=== PATIENT | female | born 1935 | race Caucasian/White ===

== ENCOUNTER 2019-01-19 15:45 | Inpatient (IN) | payer MEDICARE ==
[~2019-01-19] VITALS: Ht 157.5 cm; Wt 46.5 kg
[2019-01-19 17:12] VITALS: BP 125/79; PULSE 104; TEMP 97.7
--- NOTE | 2019-01-19 18:30 | NUR ---
Patient arrived to room VIA EMS, [facility] with [facility] assist. States she is embarrassed of her appearance and enjoys to laugh and joke. States she is without pain and does not have any difficulty breathing at this time. Call light and personal itmes are within reach.
[2019-01-19] MEDS ORDERED: TYLENOL 325MG325 MG PO (18:41)
[2019-01-19 19:22] VITALS: BP 141/57; PULSE 105; TEMP 97.4
--- NOTE | 2019-01-19 19:25 | NUR ---
Report given to oncoming shift. Patient is sitting on couch in room eating supper and visiting with family.
--- NOTE | 2019-01-19 22:14 | NUR ---
Pt sitting on edge of bed with bed alarm activated. States she is waiting for her ride home. Explained to pt that she will be spending the night at the hospital per . States she is afraid she does not have everything she needs. Informed her that we will take good care of her while she is here. Clothes removed and warm blanket given. Reorientated to surroundings. Meds given. Unsure of what meds she takes at home. Assessment complete.
[2019-01-19 23:53] VITALS: BP 121/61; PULSE 95; TEMP 97.5
[2019-01-20] VITALS (382 sets, daily range): BP systolic 72–151; BP diastolic 51–99; PULSE 86–153; TEMP 97.4–97.9; O2SAT 86–100
--- NOTE | 2019-01-20 06:53 | NUR ---
End of shift report given to Danika. Pt up to BSC. Incontinent of BM.
[2019-01-20 08:13] LABS: BASO % 0.1 % (0.0-2.0); EOS % 0.1 % (0-4.0); GRAN # 16.4 (1.4-6.5); GRAN % 89.8 % (42.2-75.2); HEMOGLOBIN 10.7 g/dl (12.5-16.0); LYMPH # 0.5 (1.2-3.4); LYMPH % 2.9 % (20.0-51.0); MEAN CELL VOLUME 89 fl (80.0-100.0); MEAN CORPUSCULAR HEMOGLOBIN 29 pg (27.0-31.0); MEAN CORPUSCULAR HGB CONC 32 g/dl (33.0-37.0); MEAN PLATELET VOLUME 8.4 fl (7.4-10.4); MONO # 1.1 (0.1-0.6); MONO % 6.2 % (1.7-9.3); PLATELET COUNT 696 K/mm3 (130-400); RED BLOOD COUNT 3.73 M/mm3 (4.10-5.30); REDCELL DISTRIBUTION WIDTH-CV 12.3 % (11.5-14.5)
--- NOTE | 2019-01-20 08:17 | NUR ---
9430- Received call from DOLORES Escalante in ICU on tele. Pt's HR between 160-170. Pt up to commode and just was settled back in bed. Boris called back minutes later stating pt's HR is sustaining in the 150s and appears to be in Afib with RVR. EKG ordered and obtained, confirmed to be Afib with RVR. Dr. Kumar notified and ordered pt to be transfered to ICU. C2 Tactical Analysis Technician, Remedios notified and bed given. Daughter, Lorena, called and updated on status. Attempted to call report to DOLORES Quiros who will return this RNs call once available.
[2019-01-20 08:32] LABS: ALBUMIN 3.3 gm/dL (3.5-5.0); BILIRUBIN,TOTAL 0.4 mg/dL (0.0-1.0); CALCIUM 10.1 mg/dL (8.4-10.2); CREATININE, serum 0.75 (0.52-1.25); POTASSIUM 3.5 mmol/L (3.4-5.0); TOTAL PROTEIN 6.4 gm/dL (6.4-8.2)
--- NOTE | 2019-01-20 08:40 | NUR ---
Patient arrives to ICU room 2 via WC from medical floor. Prior report recieved from DOLORES Garnica. Patient transfers with unsteady gait from chair to ICU bed. Assessment and vitals as charted. Afib RVR noted on monitor. Patient significantly dyspneic with exertion. Dr. Lauren at bedside. Patient returned to 3L O2 per NC. Care assumed at this time.
--- NOTE | 2019-01-20 08:49 | NUR ---
Report given to DOLORES Quiros. Transfered to ICU room 2.
--- NOTE | 2019-01-20 08:52 | NUR ---
Orders entered CPOE from off unit by Dr. Kumar.
--- NOTE | 2019-01-20 08:55 | NUR ---
Dr. Kumar called regarding orders for amiodarone gtt with bolus secondary to patient's hypotension and Dr. Hermosillols insistence that no bolus be provided because of this. TORB to DC bolus and start amio gtt at 1mg/min per Dr. Kumar. Care ongoing.
--- NOTE | 2019-01-20 09:03 | NUR ---
Neosynephrine started at 10mcg/min per VORB by Dr. Lauren at bedside.
--- NOTE | 2019-01-20 09:05 | NUR ---
Bedside discussion with patient, this RN, Dr. Lauren, and daughter (DPOA) Radha by phone regarding patient acuity and POC. Patient is prior DNR but communicates at this time that she would like everything done to include intubation but not compressions and would like to treat illness agressively but does not want to "be a vegetable". Daughter and patient indicate willingness for intubation if necessary, placement of central line, and thoracentesis. Questions invited, asked, and answered. Care ongoing.
--- NOTE | 2019-01-20 09:32 | NUR ---
Dr. Arias rounds at this time and discusses POC with Dr. Lauren. Orders as entered CPOE.
--- NOTE | 2019-01-20 09:40 | NUR ---
Dr. Lyle at bedside and dayanaraes POC with Dr. Lauren at Dr. Arias at length. ECHO ordered per .
--- NOTE | 2019-01-20 10:15 | NUR ---
Bedside right femoral central line placment per Dr. Lauren. Prior consent signed by patient and time out performed. Procedure lasts from 9289-1167. This nurse remains at bedside to monitor patient. Procedure is tolerated without complication. Care ongoing.
--- NOTE | 2019-01-20 10:19 | NUR ---
Patient noted with conversion from Afib with RVR to sinus rhythm. Dr. Lauren present in patient room and aware of change. Care ongoing.
--- NOTE | 2019-01-20 11:10 | NUR ---
Bedside right thoracentesis completed by Dr. Lauren at this time. Prior consent signed by patient. Time out completed. Duration of procedure is from [id number]. This nurse remains at bedside to monitor patient. Approximately 1400ml pleural fluid removed by and sent for labs and pathology as ordered. Site dressed with sterile gauze and tape and without drainage noted.
--- NOTE | 2019-01-20 12:00 | NUR ---
Bedside ECHO completed by tech at this time.
--- NOTE | 2019-01-20 12:30 | NUR ---
Repeat post thora x-ray completed by [facility] at this time. Dr. Lauren present to review results.
[2019-01-20 13:11] LABS: TOTAL PROTEIN,PLEURAL FLUID 3.4 gm/dL
--- NOTE | 2019-01-20 13:13 | NUR ---
Attempt made to contact daughter Radha to provide updates to interventions and inprovement in patient status. No answer and no personal information on voicemail. Both provided numbers are called.
[2019-01-20 13:54] LABS: PLEURAL FLUID RBC 1000 /mm3 (0-0); PLEURAL FLUID WBC 440 /mm3
[2019-01-20 13:56] LABS: PLEURAL FLUID APPEARANCE CLEAR; PLEURAL FLUID COLOR YELLOW
--- NOTE | 2019-01-20 19:05 | NUR ---
Report received from DOLORES Quiros. Patient care received.
--- NOTE | 2019-01-20 19:54 | NUR ---
Assessment complete; Denies any shortness of breath or pain at this time. Lung sounds auscultated; coarse in left lobes. Right lobe coarse in lower lobes and diminished in all de la cruz. 02 currenlty 99% on 1.5L o2. Assisted with alejandra-care and repositioning. Coccyx assessed and mepalex in placed. Pulled back dressing to observe site. Approximately 4X4cm reddened intact skin with dime sized center with shallow abrasion. No other complaints at this time; will continue to monitor.
--- NOTE | 2019-01-20 23:18 | NUR ---
Assisted with repositioning; No complaints or concerns reported at this time.
[2019-01-21] VITALS (381 sets, daily range): BP systolic 113–144; BP diastolic 45–62; PULSE 71–90; TEMP 97.5–98.2; O2SAT 82–100
--- NOTE | 2019-01-21 04:05 | NUR ---
Assessment complete; right lung still diminished, however slight improvement in aeration auscultated. Denies any shortness of breath. Reports an occasional "hacking" cought. Has oral suction which she uses independently as needed. No other complaints at this time.
[2019-01-21 05:22] LABS: MEAN CELL VOLUME 88 fl (80.0-100.0); MEAN CORPUSCULAR HGB CONC 33 g/dl (33.0-37.0); MEAN PLATELET VOLUME 8.5 fl (7.4-10.4); RED BLOOD COUNT 3.22 M/mm3 (4.10-5.30); REDCELL DISTRIBUTION WIDTH-CV 12.4 % (11.5-14.5)
[2019-01-21 05:24] LABS: HEMATOCRIT 28.4 % (37.0-47.0); HEMOGLOBIN 9.3 g/dl (12.5-16.0); MEAN CORPUSCULAR HEMOGLOBIN 29 pg (27.0-31.0); PLATELET COUNT 551 K/mm3 (130-400)
[2019-01-21 05:32] LABS: CALCIUM 8.8 mg/dL (8.4-10.2); CREATININE, serum 0.69 (0.52-1.25)
[2019-01-21 06:02] LABS: BAND 2 % (0-10); LYMPHOCYTE 1 % (20.0-51.0); NEUTROPHILS 94 % (42.0-75.2); PLATELET ESTIMATE INCREASED (NORMAL)
--- NOTE | 2019-01-21 07:00 | NUR ---
Report recieved from DOLORES Garvey. Patient denies needs at this time. Milner with yellow clear UO noted. Right femoral line with dressing CDI and without complication noted. Amiodarone gtt infusing at ordered rate. Pump settings verified. 2L O2 in place per NC. Care resumed at this time.
--- NOTE | 2019-01-21 09:30 | NUR ---
Dr. Lyle rounds at this time POC discussed to include MD intention to transition patient from IV Amio to PO sotalol. Care ongoing.
--- NOTE | 2019-01-21 12:35 | NUR ---
Patient to CT for ordered exam.
--- NOTE | 2019-01-21 12:45 | NUR ---
Patient returns from CT and is replaced to monitors. Care ongoing.
--- NOTE | 2019-01-21 12:50 | NUR ---
Dr. Lyle contacted regarding orders for PO sotalol as prior discussed. These are entered at this time by MD as well as order to DC IV amiodarone. Care ongoing.
--- NOTE | 2019-01-21 13:30 | NUR ---
Dr. Arias rounds at this time. Orders as entered CPOE. Care ongoing.
--- NOTE | 2019-01-21 16:04 | NUR ---
Patient assisted to bedside recliner with shuffling gait. She is arranged with her dinner and denies further needs at this time.
--- NOTE | 2019-01-21 18:00 | NUR ---
Patient transferred to ICU room 3 secondary to monitor malfunction in prior room. All belongings and chart and sent with. Care ongoing.
--- NOTE | 2019-01-21 20:00 | NUR ---
Assessment complete; patient denies any pain or shortness of breath. 02 occasionally dropping to upper 80's on RA. Placed on 1L NC. Assisted with repositioning and alejandra-care. Fluids offered and accepted. Reddened area to coccyx approximately 4X4CM with 2 dize sized abrasions; repositioning q2hr. Will continue to monitor.
[2019-01-22] VITALS (348 sets, daily range): BP systolic 116–156; BP diastolic 50–76; PULSE 63–69; TEMP 97.5–98; O2SAT 88–100
--- NOTE | 2019-01-22 04:30 | NUR ---
Provided a bedbath. Patient very appreciative. No other needs at this time.
[2019-01-22 05:14] LABS: MEAN CELL VOLUME 89 fl (80.0-100.0); MEAN CORPUSCULAR HGB CONC 33 g/dl (33.0-37.0); MEAN PLATELET VOLUME 8.6 fl (7.4-10.4); PLATELET COUNT 566 K/mm3 (130-400); RED BLOOD COUNT 3.18 M/mm3 (4.10-5.30); REDCELL DISTRIBUTION WIDTH-CV 12.4 % (11.5-14.5)
[2019-01-22 05:20] LABS: HEMATOCRIT 28.3 % (37.0-47.0); HEMOGLOBIN 9.2 g/dl (12.5-16.0); MEAN CORPUSCULAR HEMOGLOBIN 29 pg (27.0-31.0)
[2019-01-22 05:25] LABS: CALCIUM 9.2 mg/dL (8.4-10.2); CREATININE, serum 0.65 (0.52-1.25); MAGNESIUM 1.8 mg/dL (1.6-2.3); PHOSPHOROUS 2.1 mg/dL (2.5-4.5); POTASSIUM 4.1 mmol/L (3.4-5.0)
[2019-01-22 05:56] LABS: BAND 1 % (0-10); LYMPHOCYTE 4 % (20.0-51.0); NEUTROPHILS 92 % (42.0-75.2); PLATELET ESTIMATE INCREASED (NORMAL)
--- NOTE | 2019-01-22 05:59 | NUR ---
Reported critcal WBC count to E-ICU; no further orders at this time.
--- NOTE | 2019-01-22 06:18 | NUR ---
Assisted to use the bedpan; had small soft to semi-loose brown BM. Sherita-care provided and assisted to reposition. Reported some shortness of breath occuring when leaning far onto right side. Right side noted to be where pleural effusion is located. No signifant drop in 02 noted with repositioning. Denies any other complaints. Will continue to monitor.
--- NOTE | 2019-01-22 07:15 | NUR ---
Bedside report given to DOLORES Ivan and DOLORES Torres. Patient care transfered.
--- NOTE | 2019-01-22 09:30 | NUR ---
SW met with the patient to discuss discharge plan. The patient lives in [place] with her daughter, Radha. She reports independence with ADLs and does not have any DME. The patient's PCP is Dr. Donavon Gan in [place] and she receives her medications at [facility]. She reports occasional difficulties picking up her medications, due to her daughter not having a vehicle right now. The patient's Living Will is in her chart. The patient reports that she does has a DPOA-HC completed and that it is her daughter, Radha. The patient's daughter requested that SW speak to her daughter. TARIK then contacted the patient's daughter, via phone. The patient's daughter reports that their friends have been helping them out and providing them with transportation. The patient's daughter reports that she is the patient's DPOA-HC and that she does have the forms. She states that she will bring a copy up to the hospital. The patient plans to return home with her daughter upon discharge. The patient's daughter reports that they should be able to get a ride home from the hospital from a friend. PT has been ordered and the patient is currently requiring oxygen. SW to continue to follow to ensure a safe discharge.
--- NOTE | 2019-01-22 16:02 | NUR ---
SW met with the patient to discuss physical therapies recommendation of post-acute rehab. The patient reports that she is a lot weaker and would be agreeable to post-acute rehab. SW provided the patient with Medicare[facility]'s list of nursing homes around [place], [place] and presented and explained the patient choice form. The patient preferred 1) [facility] 2) [facility] in [place]. Patient choice form signed by the patient and she was provided a copy. TARIK also contacted and updated the patient's daughter of recommendation. The patient's daughter was supportive of the plan. TARIK contacted and faxed a referral to both facilities. SW awaiting their screenings.
--- NOTE | 2019-01-22 22:00 | NUR ---
Assisted with repositioning; denies any needs at this time. Will continue to monitor.
[2019-01-23] VITALS (429 sets, daily range): BP systolic 114–152; BP diastolic 50–71; PULSE 62–72; TEMP 97.5–98.2; O2SAT 76–100
--- NOTE | 2019-01-23 03:15 | NUR ---
Provided bed bath; Patient appreciative. Repositioned and situated in bed per her comfort. No concerns or complaints at this time.
--- NOTE | 2019-01-23 05:10 | NUR ---
Patient noted to have positional right sided discomfort when laying down and turning on the right side. States it is a aching pain associated with some shortness of air. Pain disappears with discontinuation of movement. 02 remains stable at these times.
[2019-01-23 05:12] LABS: BASO # 0.1 (0.0-0.2); BASO % 0.3 % (0.0-2.0); EOS # 0.3 (0.0-0.7); EOS % 1.2 % (0-4.0); GRAN % 88.1 % (42.2-75.2); LYMPH # 0.7 (1.2-3.4); LYMPH % 3.1 % (20.0-51.0); MEAN CELL VOLUME 91 fl (80.0-100.0); MEAN CORPUSCULAR HGB CONC 32 g/dl (33.0-37.0); MEAN PLATELET VOLUME 8.1 fl (7.4-10.4); MONO # 1.4 (0.1-0.6); MONO % 6.4 % (1.7-9.3); PLATELET COUNT 526 K/mm3 (130-400); RED BLOOD COUNT 3.21 M/mm3 (4.10-5.30); REDCELL DISTRIBUTION WIDTH-CV 12.5 % (11.5-14.5)
[2019-01-23 05:19] LABS: CALCIUM 8.7 mg/dL (8.4-10.2); CREATININE, serum 0.6 (0.52-1.25); POTASSIUM 3.7 mmol/L (3.4-5.0)
[2019-01-23 05:28] LABS: HEMATOCRIT 29.2 % (37.0-47.0); HEMOGLOBIN 9.3 g/dl (12.5-16.0); MEAN CORPUSCULAR HEMOGLOBIN 29 pg (27.0-31.0)
--- NOTE | 2019-01-23 08:00 | NUR ---
PATIENT ASSESSED, REPOSITIONED FREQUENTLY SHE WAS COMPLAINING OF DISCOMFORT ON HER RIGHT SIDE WITH MOVEMENT AND CERTAIN POSITIONING. DENIES PAIN WHEN RESTING. WILL CONTINUE TO MONITOR.
--- NOTE | 2019-01-23 13:04 | NUR ---
TARIK attempted to contact Natalya at [facility] and Oralia at [facility] for an update on referrals. SW left voicemails. SW faxed both facilities updates. SW to continue to follow.
--- NOTE | 2019-01-23 14:33 | NUR ---
Natalya, at [facility], reports that they will continue to follow the patient, but have not yet accepted. Natalya reports that they will need to continue to receive updates and will need to know whether the patient will eventually receive chemo or IV antibiotics. Oralia, at [facility], reports that they would like to accept the patient; but that they also will need to continue to receive updates on the patient's treatment plan. SW to continue to follow.
--- NOTE | 2019-01-23 15:25 | NUR ---
REPORT GIVEN TO DOLORES FLORES. PATIENT SETTLED INTO ROOM AND ORIENTED.
--- NOTE | 2019-01-23 17:59 | NUR ---
Pt up to room 311, settled into room, wanted to rest. Pt now awake. Denies chest pain, dizzines, SOB, n/v. On 1L NC. SERAFIN PICC with zosyn @ 25ml/hr running through purple port. Red port flushes and has good blood return. Pt on tele. Rt groin site with gauze and tegaderm, CDI. Pt has reddened coccyx w/ two small open sores, this nruse applied barrier cream. Pt C/O right sided lung pain. Rating pain at 3/10 if she isn't "doing too much". Lungs clear but diminished throughout. Milner in place draining clear yellow urine. Assisted pt on to bedpan and brushing teeth. No other concerns at this time.
--- NOTE | 2019-01-23 20:10 | NUR ---
Shift assessment complete. Pt resting in bed, awake, a&o, cooperative c cares. Pt denies pain or other c/o at this time. PICC noted to R upper arm, patent c good blood return. O2 per NC. Tele in place. PT denies needs. Call light in reach, bed alarm on. Will continue to monitor.
[2019-01-24 03:47] VITALS: BP 147/73; PULSE 69; TEMP 97.7
[2019-01-24 06:35] LABS: BASO # 0.1 (0.0-0.2); BASO % 0.3 % (0.0-2.0); EOS # 0.4 (0.0-0.7); EOS % 1.6 % (0-4.0); GRAN # 18.5 (1.4-6.5); GRAN % 87.2 % (42.2-75.2); LYMPH # 0.7 (1.2-3.4); LYMPH % 3.2 % (20.0-51.0); MEAN CELL VOLUME 91 fl (80.0-100.0); MEAN CORPUSCULAR HGB CONC 31 g/dl (33.0-37.0); MEAN PLATELET VOLUME 8.8 fl (7.4-10.4); MONO # 1.3 (0.1-0.6); MONO % 6.3 % (1.7-9.3); PLATELET COUNT 583 K/mm3 (130-400); RED BLOOD COUNT 3.35 M/mm3 (4.10-5.30); REDCELL DISTRIBUTION WIDTH-CV 12.4 % (11.5-14.5)
[2019-01-24 06:44] LABS: ALBUMIN 2.5 gm/dL (3.5-5.0); BILIRUBIN,TOTAL 0.2 mg/dL (0.0-1.0); CALCIUM 8.8 mg/dL (8.4-10.2); CREATININE, serum 0.53 (0.52-1.25); POTASSIUM 3.9 mmol/L (3.4-5.0)
[2019-01-24 06:49] LABS: HEMATOCRIT 30.6 % (37.0-47.0); HEMOGLOBIN 9.6 g/dl (12.5-16.0); MEAN CORPUSCULAR HEMOGLOBIN 29 pg (27.0-31.0)
--- NOTE | 2019-01-24 08:20 | NUR ---
PICC intact right upper arm with sterile dressing change done with insertion site cleansed with chloraprep x 1, chlorhexidine impregnated disk applied, skin prep, stat lock, and tegaderm applied. no signs or symptoms of IV complications noted. no concerns voiced. re-wrapped with jose g to protect catheter.
[2019-01-24 09:06] VITALS: BP 124/48; PULSE 73; TEMP 98.3
--- NOTE | 2019-01-24 09:53 | NUR ---
Pt assessment complete and charted. Pt up to recliner with therapy. pt states she is "doing better today". denies pain, chest pain, dizziness, N/V. Milner in place draining pale yellow urine. SERAFIN PICC in place, both red and purple port flushing well and good blood return with no complications. Coccyx is red w/ two small open sores. general bruising noted on arms. No other complaints at this time.
--- NOTE | 2019-01-24 11:16 | NUR ---
First visit from the professional architect. No needs right now.
[2019-01-24 11:42] VITALS: BP 157/58; PULSE 68; TEMP 97.9
--- NOTE | 2019-01-24 15:53 | NUR ---
[facility] will continue to follow.
[2019-01-24 16:14] VITALS: BP 159/54; PULSE 70; TEMP 98.3
--- NOTE | 2019-01-24 18:32 | NUR ---
Pt has had uneventful day. Received antibiotics per AUG. C/O pain with therapy, rating it 10/10. Per pt she "doesn't like to bother anyone". Informed pt she needs to tell us earlier if she is in pain or needs anything. Pt rating pain 3/10 at this time. Received tylenol earlier PRN per AUG. No other complaints at this time.
[2019-01-24 20:23] VITALS: BP 124/51; PULSE 66; TEMP 98.3
--- NOTE | 2019-01-24 20:30 | NUR ---
Initial shift assessment done- denies pain, denies SOB, o2 at 1L/nc, Lung sounds very decreased in right lower lobes- Dr. Mclaughlin in- will do pleurax drain at 0800 in the morning- pt aware- will be NPO after MN- will get consent signed tonight. Tele on, VSS, no requests, ready to get some sleep
[2019-01-24 23:54] VITALS: BP 116/50; PULSE 99; TEMP 97.5
[2019-01-25] VITALS (13 sets, daily range): BP systolic 111–153; BP diastolic 41–53; PULSE 61–66; TEMP 97.5–98.7
[2019-01-25 06:05] LABS: MEAN CELL VOLUME 91 fl (80.0-100.0); MEAN CORPUSCULAR HGB CONC 32 g/dl (33.0-37.0); MEAN PLATELET VOLUME 8.6 fl (7.4-10.4); PLATELET COUNT 509 K/mm3 (130-400); RED BLOOD COUNT 3.17 M/mm3 (4.10-5.30); REDCELL DISTRIBUTION WIDTH-CV 12.6 % (11.5-14.5)
[2019-01-25 06:06] LABS: HEMATOCRIT 28.9 % (37.0-47.0); HEMOGLOBIN 9.1 g/dl (12.5-16.0); MEAN CORPUSCULAR HEMOGLOBIN 29 pg (27.0-31.0)
[2019-01-25 06:17] LABS: ALBUMIN 2.3 gm/dL (3.5-5.0); BILIRUBIN,TOTAL 0.1 mg/dL (0.0-1.0); CALCIUM 8.5 mg/dL (8.4-10.2); CREATININE, serum 0.59 (0.52-1.25); POTASSIUM 3.6 mmol/L (3.4-5.0); TOTAL PROTEIN 4.9 gm/dL (6.4-8.2)
--- NOTE | 2019-01-25 06:17 | NUR ---
Quiet night- VSS, Milner with 650cc clear yellow urine, did have soft bowel movement per bedpan-, has been NPO since MN, signed consent for OR
[2019-01-25 06:48] LABS: BAND 2 % (0-10); EOSINOPHIL 2 % (0-4); LYMPHOCYTE 3 % (20.0-51.0); METAMYELOCYTE 2 % (0-0); NEUTROPHILS 85 % (42.0-75.2); PLATELET ESTIMATE INCREASED (NORMAL)
--- NOTE | 2019-01-25 07:29 | NUR ---
Pt assessment complete and charted. Pt resting in bed before going down for pleurix drain placement. Rt lung sounds absent/very diminshed. SERAFIN PICC in place w/ zosyn running in one port w/ no complications. Both ports flush well with good blood return. Pt coccyx reddened w/ two very small open sores present, barrier cream being applied. Milner in place draining clear yellow urine. Pt on 1L NC. Denies SOB, dizziness, N/V. C/O right side "discomfort" rating it 1-2/10. No other needs at this time. Consent signed for procedure.
--- NOTE | 2019-01-25 07:42 | NUR ---
Pt down for procedure at this time escorted via bed w/ Wilberto from surgery.
--- NOTE | 2019-01-25 08:20 | NUR ---
PT HAVING PROCEDURE
--- NOTE | 2019-01-25 09:53 | NUR ---
Pt back from pluerix procedure. Rt side dressing CDI, drain sponge and tegaderm in place. Catheter capped. Pt VSS, VS monitoring in progress. Pt resting in bed.
--- NOTE | 2019-01-25 10:41 | NUR ---
Pt resting in bed, still sleeping from procedure. VSS.
--- NOTE | 2019-01-25 13:42 | NUR ---
Pt up and tolerating liquids. Morning medications administered that were not given due to pt going down for procedure early this morning and sleeping afterwards. Pt just arrived back on floor from CT. Pt is A&O. C/O "tenderness" on right front side. Pt denies pain medication at this time.
--- NOTE | 2019-01-25 14:52 | NUR ---
SW faxed pt update to [facility] and [facility]. TARIK will continue to follow.
--- NOTE | 2019-01-25 15:20 | NUR ---
Pt repositioned, pillow placed under right side, barrier cream applied to coccyx that is reddened w/ two small open sores. Open sores still same size. Right front side, under breast, dressing is CDI, catheter still capped. Pt denies wanting any pain medication. No other needs or complaints at this time.
--- NOTE | 2019-01-25 17:03 | NUR ---
Pt daughter phoned this nurse, upset that there are "things going on that she didn't know about". Pts daughter had talked to pt and was informed about procedures performed and pending discharge. Per daughter she is not DPOA, this nurse talked to SW who stated that daughter said "she was DPOA but hasn't brought in paperwork". Pt is A&O and able to make own decisions. POC has been discussed between all providers and pt, pt has agreed to all procedures. TARIK called daughter to discuss POC. CHIRAG Blanchard also informed of situation and given daughters number to call and discuss POC. Pt has been doing ok this afternoon since procedures. VSS. Pt just states she is "sleepy". No other concerns at this time.
[2019-01-26] VITALS (9 sets, daily range): BP systolic 115–146; BP diastolic 40–63; PULSE 59–71; TEMP 97.3–98.5
[2019-01-26 06:15] LABS: HEMATOCRIT 28.2 % (37.0-47.0); HEMOGLOBIN 8.7 g/dl (12.5-16.0); MEAN CELL VOLUME 93 fl (80.0-100.0); MEAN CORPUSCULAR HEMOGLOBIN 29 pg (27.0-31.0); MEAN CORPUSCULAR HGB CONC 31 g/dl (33.0-37.0); MEAN PLATELET VOLUME 8.8 fl (7.4-10.4); PLATELET COUNT 475 K/mm3 (130-400); RED BLOOD COUNT 3.05 M/mm3 (4.10-5.30); REDCELL DISTRIBUTION WIDTH-CV 12.8 % (11.5-14.5)
[2019-01-26 06:31] LABS: ALBUMIN 2.2 gm/dL (3.5-5.0); BILIRUBIN,TOTAL 0.2 mg/dL (0.0-1.0); CALCIUM 8.3 mg/dL (8.4-10.2); CREATININE, serum 0.59 (0.52-1.25); POTASSIUM 3.8 mmol/L (3.4-5.0); TOTAL PROTEIN 4.6 gm/dL (6.4-8.2)
[2019-01-26 06:53] LABS: EOSINOPHIL 3 % (0-4); LYMPHOCYTE 3 % (20.0-51.0); NEUTROPHILS 92 % (42.0-75.2); PLATELET ESTIMATE INCREASED (NORMAL)
--- NOTE | 2019-01-26 10:23 | NUR ---
Natalya, at [facility], reports that they are unable to accept the patient.
--- NOTE | 2019-01-26 10:30 | NUR ---
Assessment charted. Pt in recliner at side of bed. On phone with family, anticipating discharge today to [facility] or [facility]. Fish in room and on floor discussing need to to lung biopsy. Pt agreeable to lung biopsy and new plan for biopsy and staying here until results are in. BLE and Elbows have +1 edema. Bruising to arms. PICC to SERAFIN with antibiotics infusing. Milner removed per orders, pt tolerated well. Denies needs, will continue to monitor.
--- NOTE | 2019-01-26 11:22 | NUR ---
Oralia, at [facility], reports that they can accept the patient for a skilled stay. SW had informed the patient and patient's daughter, Radha, via phone. The patient and her daughter are in agreeance to transfer there upon discharge. The patient is to have a biopsy today, 01/26. SW to continue to follow.
--- NOTE | 2019-01-26 11:56 | NUR ---
Report received from DOLORES García. pT in bed resting with eyes closed, denies needs, will continue to monitor.
--- NOTE | 2019-01-26 13:45 | NUR ---
PT BROUGHT INTO CT ROOM AND PLACED ON THE CT TABLE. PT WAS POSITIONED ON HER STOMACH, SOME ANXIETY WITH THIS POSITION. TIME OUT COMPLETED. IMAGES TAKEN AND SENT
--- NOTE | 2019-01-26 13:50 | NUR ---
PT RESTING WITH RESP EVEN AND NONLABORED AT 20.
--- NOTE | 2019-01-26 14:20 | NUR ---
PT TOLERATED PROCEDURE WELL. PT WAS SLEEPY AFTER THE MEDS. PT WAS TRANSFERED TO CART VIA STAFF IN LOG ROLL. PICC PATENT TO [facility]. PRESTON IN PLACE. REPORT WAS CALLED TO ANJELICA BERNAL.
--- NOTE | 2019-01-26 14:43 | NUR ---
PT WAS GIVEN 0.5MG VERSED AND 25 MCG FENTANYL FOR BREATHING.
--- NOTE | 2019-01-26 19:17 | NUR ---
Pt resting in bed after returning from lung biopsy at 1545. Resting quietly and sleepy, allowed to s leep for some time. Sacrem redenned and placed mepilex dressing pillow under backside for comfort. PT feeling well, waiting on supper. Denies needs, bedside shift report given to DOLORES García who will resume care.
[2019-01-27 03:01] VITALS: BP 144/64; PULSE 64; TEMP 97.6
--- NOTE | 2019-01-27 07:15 | NUR ---
Report received from DOLORES García. pT in bed sleeping, will continue to monitor.
[2019-01-27 07:32] VITALS: BP 149/48; PULSE 63; TEMP 98
[2019-01-27 07:37] LABS: MEAN CELL VOLUME 91 fl (80.0-100.0); MEAN CORPUSCULAR HGB CONC 32 g/dl (33.0-37.0); PLATELET COUNT 462 K/mm3 (130-400); RED BLOOD COUNT 2.91 M/mm3 (4.10-5.30); REDCELL DISTRIBUTION WIDTH-CV 12.9 % (11.5-14.5)
[2019-01-27 07:44] LABS: HEMATOCRIT 26.6 % (37.0-47.0); HEMOGLOBIN 8.5 g/dl (12.5-16.0); MEAN CORPUSCULAR HEMOGLOBIN 29 pg (27.0-31.0)
[2019-01-27 07:46] LABS: ALANINE AMINOTRANSFERASE 11 U/L (9-52); ALBUMIN 2.3 gm/dL (3.5-5.0); ALKALINE PHOSPHATASE 51 U/L (50-136); ANION GAP 4 mmol/L (7-16); AST,SGOT 18 U/L (15-37); BILIRUBIN,TOTAL < 0.1 mg/dL (0.0-1.0); BLOOD UREA NITROGEN 12 mg/dL (7-17); CALCIUM 8.5 mg/dL (8.4-10.2); CARBON DIOXIDE 34 mmol/L (22-30); CHLORIDE 97 mmol/L (98-107); GLUCOSE 97 mg/dL (74-106); POTASSIUM 3.5 mmol/L (3.4-5.0); SODIUM 135 mmol/L (137-145); TOTAL PROTEIN 4.9 gm/dL (6.4-8.2)
[2019-01-27 08:23] LABS: EOSINOPHIL 3 % (0-4); LYMPHOCYTE 5 % (20.0-51.0); NEUTROPHILS 87 % (42.0-75.2); PLATELET ESTIMATE INCREASED (NORMAL)
--- NOTE | 2019-01-27 10:30 | NUR ---
Assessment charted. Pt in bed resting, repositioned for comfort, pillow under left side for comfort. Bandaid on back from lung biopsy site is CDI. Right pleurex drain dressing is CDI. Lungs are very dimished on R side. Pt states she is "tired today from yesterday", wants to finish breakfast and rest. PICC to SERAFIN with antibiotics infusing. Denies needs, will continue to monitor.
[2019-01-27 12:03] VITALS: BP 141/45; PULSE 54; TEMP 98.2
[2019-01-27 17:00] VITALS: BP 153/60; PULSE 69; TEMP 98.8
--- NOTE | 2019-01-27 18:19 | NUR ---
Pt has been very lethargic today, just wnating to rest. This afternoon she was all of the sudden tearful, complaining of discomfort and inability to void. Bladder scan revealed 700 mls, orders received to straight cath. Straight cath provided, 350 mls output of urine, pt tolerated well, pericare provided. Per orders pt will be bladder scanned q shift and if greater than 500 mls found will need catheter. Pt grateful for catheterization and now wants to rest. Will give bedside shift report to nightshift nurse who will resume care.
[2019-01-27 19:13] VITALS: BP 155/62; PULSE 71; TEMP 98.4
--- NOTE | 2019-01-27 19:44 | NUR ---
patient laying in bed with eyes open. presents with relaxed body posture and even non labored respirations. reports generalized body aches. States "This is normal". denies needing intervvention. SPO2 89% on RA. O2 2L/NC applied. SPO2 98% within 2 minuets. patient denies c/o SOA. Right chest peurex drain in place, clamped. dressing in place. Lung sounds right side very diminished throughout. left lung sounds clear to ascultation. RT in room completeing nebulizer treatment at this time.
[2019-01-27 23:08] VITALS: BP 143/59; PULSE 60; TEMP 97.3
[2019-01-28 03:05] VITALS: BP 163/66; PULSE 63; TEMP 97
--- NOTE | 2019-01-28 07:00 | NUR ---
Report received from DOLORES García. Pt in bed resting with eyes closed, denies needs, will continue to monitor.
[2019-01-28 07:53] LABS: MEAN CELL VOLUME 91 fl (80.0-100.0); MEAN CORPUSCULAR HGB CONC 31 g/dl (33.0-37.0); MEAN PLATELET VOLUME 8.9 fl (7.4-10.4); PLATELET COUNT 484 K/mm3 (130-400); RED BLOOD COUNT 3.18 M/mm3 (4.10-5.30); REDCELL DISTRIBUTION WIDTH-CV 12.9 % (11.5-14.5)
[2019-01-28 08:02] LABS: HEMOGLOBIN 9.1 g/dl (12.5-16.0); MEAN CORPUSCULAR HEMOGLOBIN 29 pg (27.0-31.0)
[2019-01-28 08:04] LABS: ALBUMIN 2.6 gm/dL (3.5-5.0); BILIRUBIN,TOTAL 0.2 mg/dL (0.0-1.0); CALCIUM 8.6 mg/dL (8.4-10.2); CREATININE, serum 0.7 (0.52-1.25); POTASSIUM 3.4 mmol/L (3.4-5.0); TOTAL PROTEIN 5.5 gm/dL (6.4-8.2)
[2019-01-28 08:29] VITALS: BP 155/58; PULSE 64; TEMP 98
--- NOTE | 2019-01-28 10:00 | NUR ---
Assessment charted. Pt more alert today. uP with PT and ambulated down hallway well. Pillow under sacrem for comfort with stage 2 pressure ulcer. L lung is clear and R lung is severely diminished. Ate some breafkast, wants to eat a late lunch. PICC to SERAFIN. Denies needs, will continue to monitor.
[2019-01-28 10:14] LABS: BAND 5 % (0-10); NEUTROPHILS 90 % (42.0-75.2); PLATELET ESTIMATE INCREASED (NORMAL)
[2019-01-28 10:16] LABS: HYPOCHROMIA 2+
[2019-01-28 12:00] VITALS: BP 154/60; PULSE 64; TEMP 97.9
[2019-01-28 16:11] VITALS: BP 146/48; PULSE 67; TEMP 98.4
--- NOTE | 2019-01-28 17:29 | NUR ---
Pt has rested off and on today. Doing well, ate 1 yogurt for breakfast and stated she felt too full to eat lunch and wanted supper at 6pm. Encouraged intake but has very little drive to eat or drink much. Resting on top of pillow for comfort d/t soreness on backside. Denies needs, will give bedside shift report to nightshift nurse who cammy resume care.
[2019-01-28 19:55] VITALS: BP 147/56; PULSE 70; TEMP 97.9
[2019-01-28 23:40] VITALS: BP 147/53; PULSE 62; TEMP 97.5
[2019-01-29 03:53] VITALS: BP 149/51; PULSE 65; TEMP 97.5
[2019-01-29 07:10] LABS: BASO # 0.1 (0.0-0.2); BASO % 0.6 % (0.0-2.0); EOS # 0.2 (0.0-0.7); EOS % 1.2 % (0-4.0); GRAN # 12.8 (1.4-6.5); GRAN % 84.6 % (42.2-75.2); LYMPH # 0.8 (1.2-3.4); MEAN CELL VOLUME 92 fl (80.0-100.0); MEAN CORPUSCULAR HGB CONC 32 g/dl (33.0-37.0); MEAN PLATELET VOLUME 9.2 fl (7.4-10.4); MONO # 1.1 (0.1-0.6); MONO % 7.3 % (1.7-9.3); PLATELET COUNT 449 K/mm3 (130-400); RED BLOOD COUNT 2.84 M/mm3 (4.10-5.30)
[2019-01-29 07:11] LABS: HEMATOCRIT 26.1 % (37.0-47.0); HEMOGLOBIN 8.3 g/dl (12.5-16.0); MEAN CORPUSCULAR HEMOGLOBIN 29 pg (27.0-31.0)
[2019-01-29 07:16] LABS: CALCIUM 8.8 mg/dL (8.4-10.2); CREATININE, serum 0.68 (0.52-1.25); POTASSIUM 3.8 mmol/L (3.4-5.0)
[2019-01-29 08:07] VITALS: BP 154/55; PULSE 67; TEMP 98.3
--- NOTE | 2019-01-29 11:08 | NUR ---
Pt assessment complete and charted. Pt sitting in bed eating breakfast. Denies pain, c/o some pressure/tenderness where the pleurix catheter is located. Denies pain medication. Pt on 1L NC. Milner in place w/ clear yellow urine draining. SERAFIN PICC flushes w/ good blood return. pt is noted to have bilateral 1+ edema on feet, which per pt "is new", will discuss w/ hospitalist. Pt denies SOB, dizziness, N/V, chest pain. No other needs at this time.
[2019-01-29 12:34] VITALS: BP 135/50; PULSE 62; TEMP 98.2
--- NOTE | 2019-01-29 14:40 | NUR ---
Pt jarvis beckham'adan. 100 ml emptied from bag. Pt instructed to call to be assisted to bathroom. Will do a bladder scan post void.
[2019-01-29 16:26] VITALS: BP 165/55; PULSE 65; TEMP 97.9
--- NOTE | 2019-01-29 16:56 | NUR ---
The patient's prelim path results were positive for squamous cell carcinoma. Dr. Whitten is recommending a radiation oncology consult. TARIK attempted to contact and update Oralia at [facility]. TARIK left a voicemail and faxed over updates. SW to continue to follow.
--- NOTE | 2019-01-29 19:23 | NUR ---
Pt refused dinner tonight, requesting only an Ensure. Pt repositioned, mepalex on coccyx changed, barrier cream applied, pericare provided. Pt requested tylenol this afternoon. Pt has not voided since removal of conley. Informed equip maint eng nurse of patient status.
[2019-01-29 19:44] VITALS: BP 134/46; PULSE 63; TEMP 97.9
[2019-01-29 23:44] VITALS: BP 154/60; PULSE 64; TEMP 97.3
[2019-01-30 04:17] VITALS: BP 154/50; PULSE 63; TEMP 97.6
[2019-01-30 06:16] LABS: CALCIUM 8.8 mg/dL (8.4-10.2); CREATININE, serum 0.65 (0.52-1.25)
[2019-01-30 06:33] LABS: BASO # 0.1 (0.0-0.2); BASO % 0.5 % (0.0-2.0); EOS # 0.2 (0.0-0.7); EOS % 1.6 % (0-4.0); GRAN # 12.2 (1.4-6.5); GRAN % 84.9 % (42.2-75.2); LYMPH # 0.7 (1.2-3.4); LYMPH % 5.1 % (20.0-51.0); MEAN CELL VOLUME 92 fl (80.0-100.0); MEAN CORPUSCULAR HGB CONC 31 g/dl (33.0-37.0); MEAN PLATELET VOLUME 9.2 fl (7.4-10.4); MONO # 0.9 (0.1-0.6); MONO % 6.6 % (1.7-9.3); PLATELET COUNT 435 K/mm3 (130-400); RED BLOOD COUNT 2.92 M/mm3 (4.10-5.30); REDCELL DISTRIBUTION WIDTH-CV 13.2 % (11.5-14.5)
[2019-01-30 06:48] LABS: HEMATOCRIT 26.8 % (37.0-47.0); HEMOGLOBIN 8.4 g/dl (12.5-16.0); MEAN CORPUSCULAR HEMOGLOBIN 29 pg (27.0-31.0)
--- NOTE | 2019-01-30 07:41 | NUR ---
PATIENT SLWPT THROUGH THE NIGHT WITHOUT COMPLAINTS. AT 0515 ENCOURAGED PATIENT TO GET UP TO VOID SHE HAS NOT URINATED ALL NIGHT. PATIENT STATES "I DO FEEL LIKE I NEED TO GO BUT IT DOES NOT HURT LIKE LAST TIME". ASSISTED TO BEDSIDE COMMADE. DID NOT VOID. POST RESIDUAL BLADDER SCAN COMPLETED WITH 725ML SCANNED. ROACH CATHETER PLACED PER ORDER. PATIENT AGREES WITH PLAN OF CARE AT THIS TIME
[2019-01-30 08:21] VITALS: PULSE 67; TEMP 98.2
[2019-01-30 08:24] VITALS: BP 112/71; PULSE 67; TEMP 98.2
--- NOTE | 2019-01-30 08:30 | NUR ---
Assessment complete. Pt sitting up in bed eating breakfast, A&O x 3. Breath sounds diminished in right lung. Pt reports generalized pain 7 out of 10 on pain scale, denies medications at this time. PICC line to right upper arm without s/s of complications. O2 at 1 L/min via NC. Milner to DD with clear, yellow urine. Reviewed plan to leave catheter in place until pt is able to see a urologist. No further needs reported. Call light in reach.
--- NOTE | 2019-01-30 09:00 | NUR ---
PICC intact right upper arm. With sterile technique right upper arm PICC dressing change done with insertion site cleansed with ChloraPrep 1, chlorhexidine impregnated disc applied, skin prep, StatLock, and Tegaderm applied. When changing the PICC dressing the Biopatch was coiled around catheter. In attempting to remove Biopatch, the catheter was pulled out. No signs or symptoms of IV complications noted. No concerns voiced. Arm wrapped with an Alfonso to protect catheter. We'll continue to monitor.
[2019-01-30 12:45] VITALS: BP 167/67; PULSE 66; TEMP 97.8
--- NOTE | 2019-01-30 15:58 | NUR ---
Oralia, at [facility], reports that they will continue to follow the patient. Oralia reports that she will need to know what kind and code of radiation the patient will be on and when and how often she will need it. The clinical teams is awaiting Dr. Miguel's radiation plan. SW to continue to follow.
--- NOTE | 2019-01-30 17:00 | NUR ---
Pt resting in bed, denies needs at this time, requests just to get some rest this afternoon. Call light in reach.
[2019-01-30 17:09] VITALS: BP 149/68; PULSE 67; TEMP 98.3
[2019-01-30 19:34] VITALS: BP 169/67; PULSE 66; TEMP 98.1
--- NOTE | 2019-01-30 22:53 | NUR ---
Report received from DOLORES Bautista. Patient resting in bed. Assessment completed. Vitals within normal limits. Patient denies having any pain. IV patent, flushed. Denies having any further needs at this time. Call light within reach.
[2019-01-31 00:13] VITALS: BP 170/71; PULSE 64; TEMP 97.6
--- NOTE | 2019-01-31 04:50 | NUR ---
Patient up to restroom. Reassessed coccyx area and now has several small open areas.
[2019-01-31 05:30] VITALS: BP 170/55; PULSE 61; TEMP 97.7
--- NOTE | 2019-01-31 06:09 | NUR ---
Patient had uneventful night. One episode of incontinence. Chux changed. Patient given toothbrush, toothpaste, and wipes for face. Resting in bed. Call light within reach.
[2019-01-31 06:13] LABS: BASO # 0.1 (0.0-0.2); BASO % 0.7 % (0.0-2.0); EOS # 0.3 (0.0-0.7); EOS % 1.4 % (0-4.0); GRAN # 15.8 (1.4-6.5); GRAN % 87.3 % (42.2-75.2); LYMPH # 0.8 (1.2-3.4); LYMPH % 4.2 % (20.0-51.0); MEAN CELL VOLUME 92 fl (80.0-100.0); MEAN CORPUSCULAR HGB CONC 31 g/dl (33.0-37.0); MEAN PLATELET VOLUME 9.3 fl (7.4-10.4); MONO % 5.3 % (1.7-9.3); PLATELET COUNT 465 K/mm3 (130-400); RED BLOOD COUNT 3.21 M/mm3 (4.10-5.30); REDCELL DISTRIBUTION WIDTH-CV 13.1 % (11.5-14.5)
[2019-01-31 06:17] LABS: HEMATOCRIT 29.4 % (37.0-47.0); HEMOGLOBIN 9.2 g/dl (12.5-16.0); MEAN CORPUSCULAR HEMOGLOBIN 29 pg (27.0-31.0)
[2019-01-31 06:27] LABS: CALCIUM 9.1 mg/dL (8.4-10.2); CREATININE, serum 0.64 (0.52-1.25); POTASSIUM 3.9 mmol/L (3.4-5.0)
--- NOTE | 2019-01-31 07:01 | NUR ---
Report given to DOLORES Bautista.
[2019-01-31 07:14] VITALS: BP 166/57; PULSE 60; TEMP 98
--- NOTE | 2019-01-31 08:30 | NUR ---
Assessment complete. Pt sitting up in bed, A&O x 3. Breath sounds diminished in right lung, clear in left. O2 at 1 L/min via NC. PICC to right upper arm without s/s of complications. Pt denies pain at this time. POC for radiation treatment reviewed with pt. No further needs reported. Call light in reach.
--- NOTE | 2019-01-31 09:15 | NUR ---
Pt to Cancer center for radiation treatment via [facility].
--- NOTE | 2019-01-31 14:29 | NUR ---
Dr. Miguel is recommending ten days of radiation therapy, with her first radiation today, 01/31. TARIK contacted and updated the DON at [facility]. Plan is for the patient to tranfer to [facility] for a skilled stay after her ten days of radiation. TARIK then followed up with the patient to review plan and check in. The patient is in agreeance to this plan. She states that radiation went okay today and that her daughter plans to come up to the hospital this Tuesday. She states she is ready to start therapy at [facility]. She had no other questions or concerns at this time. SW to continue to follow.
[2019-01-31 16:21] VITALS: BP 135/44; PULSE 58; TEMP 97.5
--- NOTE | 2019-01-31 17:30 | NUR ---
Pt sitting up in bed, denies pain or needs at this time, just wanting to get more rest. Call light in reach.
--- NOTE | 2019-01-31 19:35 | NUR ---
Patient assessed at this time. Alert and oriented x 4, and able to make needs known. Complained of level 5 "all over" aching. Given PRN APAP. Double lumen PICC to RUE. Flushed. Site is without redness, warmth, swelling, and pain. On oxygen at 2 L/min via NC. Complains of SOB with exertion. Also, unable to lay flat due to orthopnea. LS fine crackles in upper lobes, diminished in lower lobes. No cough noted. Repirations shallow, even, and unlabored. HRR. Telemetry in place. Cap refill < 3 sec. Non-tent skin turgor. No edema noted. Dressing to right chest is CDi for clamped pleurex drain. Mepilex to stage 2 pressure sore on coccyx is CDI. Encouraged repositioning during nightly rounds. Indwelling colney catheter is patient, and draining cloudy yellow urine via dependent drainage. Voices no questions, needs, or concerns at this time. Call light is within reach.
[2019-01-31 20:06] VITALS: BP 143/50; PULSE 62; TEMP 97.7
[2019-02-01 01:08] VITALS: BP 130/57; PULSE 55; TEMP 97.4
--- NOTE | 2019-02-01 01:25 | NUR ---
Patient stated that PRN APAP was effective. Denies having any other questions, needs, or concerns at this time. Resting in bed with call light within reach.
[2019-02-01 04:35] VITALS: BP 144/56; PULSE 59; TEMP 97.4
--- NOTE | 2019-02-01 04:48 | NUR ---
Patient has voiced no questions, needs, or concerns at this time. Denies having pain and discomfort. Staff continues to check, change, and reposition during nightly rounds. Indwelling conley catheter continues to drain cloudy yellow urine with sediment present via dependent drainage. Continues to wear oxygen at 2 L/min via NC. Resting in bed with call light within reach at this time.
[2019-02-01 06:19] LABS: BASO # 0.1 (0.0-0.2); BASO % 0.8 % (0.0-2.0); EOS # 0.2 (0.0-0.7); EOS % 1.2 % (0-4.0); GRAN # 11.9 (1.4-6.5); LYMPH # 0.6 (1.2-3.4); MEAN CELL VOLUME 92 fl (80.0-100.0); MEAN CORPUSCULAR HGB CONC 32 g/dl (33.0-37.0); MEAN PLATELET VOLUME 9.5 fl (7.4-10.4); MONO # 0.8 (0.1-0.6); PLATELET COUNT 379 K/mm3 (130-400); RED BLOOD COUNT 2.85 M/mm3 (4.10-5.30)
[2019-02-01 06:22] LABS: HEMATOCRIT 26.2 % (37.0-47.0); HEMOGLOBIN 8.3 g/dl (12.5-16.0); MEAN CORPUSCULAR HEMOGLOBIN 29 pg (27.0-31.0)
[2019-02-01 06:28] LABS: CALCIUM 8.5 mg/dL (8.4-10.2); CREATININE, serum 0.65 (0.52-1.25); POTASSIUM 3.6 mmol/L (3.4-5.0)
[2019-02-01 07:02] VITALS: BP 153/52; PULSE 62; TEMP 97.8
--- NOTE | 2019-02-01 08:30 | NUR ---
PICC intact right upper arm with sterile dressing change done with disk present with large amount of dried reddish drainage noted. site cleansed with chloraprep x 1, chlorhexidine impregnated disk applied, skin prep, stat lock, and tegaderm applied. no signs or symptoms of IV complications noted. no concerns voiced.
--- NOTE | 2019-02-01 10:28 | NUR ---
TARIK faxed updates to Oralia at [facility]. TARIK to continue to follow.
--- NOTE | 2019-02-01 11:00 | NUR ---
PT WENT TO RADIATION AT 0900 VIA EMS TRANSFER. PT RETURNED ABOUT 15 MINS LATER. PT ONLY C/O THE RADIATION TAKING THE WIND OUT OF HER. PT O2 SATS WNL, I ASKED PT IF SHE HAD BEEN GETTING ANY BREATHING TX DURING HOSPITAL STAY AND IF SO IF SHE WANTED ME TO CALL AND GET HER ONE FROM RT. PT STATED THAT WOULDNT HELP. DENIES NEED FOR ANYTHING ELSE AT THIS TIME.
[2019-02-01 11:36] VITALS: BP 108/36; PULSE 66; TEMP 97.8
--- NOTE | 2019-02-01 13:29 | NUR ---
PT REFUSED. NOT FEELING WELL.
[2019-02-01 16:24] VITALS: BP 127/61; PULSE 66; TEMP 97.9
--- NOTE | 2019-02-01 18:27 | NUR ---
PT HAD UNEVENTFUL AFTERNOON. HAS RESTED/NAPPED THIS AFTERNOON. PT NOT FOND OF NO FREE WATER, DID REQUEST SOME WATER TO MOISTEN HER MOUTH AND DIDNT WANT ANY OF THE SWEET JUCIE. THIS NURSE DID CALL KITCHEN FOR PT SOME GATERAID TO TRY HOPING IT WOULD BE LESS SWEET THEN JUICE FOR HER TO TRY.
--- NOTE | 2019-02-01 19:35 | NUR ---
Patient assessed at this time. Alert and oriented, and able to make needs known. Denies having pain and discomfort. Double lumen PICC to RUE flushed. Site is without redness, warmth, swelling, and pain. On oxygen at 2 L/min via NC. Does complain of SOB and dyspnea at rest. LS CTA left lung de la cruz, diminished right lung de la cruz. Dressing to pleurex drain to right side is CDI. Clamped. Respirations even and unlabored. HRR. Capillary refill less than 3 seconds. Non-tenting skin turgor. BSAx4. Abdomen soft and non-tender. Indwelling conley catheter patent, and draining yellow urine with sediment present via dependant drainage. Catheter securement devices is CDI. Mepilex dressing to pressure sore on coccyx is CDI. No edema noted. Resting in bed with call light within reach. Voices no questions, needs, or concerns.
[2019-02-01 19:42] VITALS: BP 140/46; PULSE 69; TEMP 98.3
[2019-02-02] VITALS (7 sets, daily range): BP systolic 125–149; BP diastolic 47–61; PULSE 65–72; TEMP 97.9–98.6
--- NOTE | 2019-02-02 04:56 | NUR ---
Patient has been resting in bed with eyes closed most of the night. Has denied having pain and discomfort. Continues to wear oxygen at 2 L/min via NC. Indwelling conley catheter continues to drain yellow urine with sediment present via dependent drainage. Has voiced no questions, needs, or concerns. Resting in bed with eyes closed at this time. Call light is within reach.
--- NOTE | 2019-02-02 07:16 | NUR ---
TX REFUSED. PT FEELING BETTER.
[2019-02-02 08:44] LABS: CALCIUM 8.7 mg/dL (8.4-10.2); CREATININE, serum 0.64 (0.52-1.25)
--- NOTE | 2019-02-02 13:07 | NUR ---
TARIK faxed updates to Oralia at [facility]. TARIK to continue to follow.
--- NOTE | 2019-02-02 19:15 | NUR ---
Patient assessed at this time. Alert and oriented x 4, and able to make needs known. Denies having pain and discomfort. Voices no questions, needs, or concerns at this time. LS CTA left lung fiends and right upper lobe. Diminished right lower lobes. On oxygen at 2 L/min via NC. Respirations even and unlabored. HRR. Cap refill < 3 sec. Non-tent skin turgor. BSAx4. Abdomen soft and non-tender. No edema. PICC to RUE. Resting in bed with call light within reach.
--- NOTE | 2019-02-02 20:00 | NUR ---
Pt has had uneventful day. Pt A&O. C/o general pain, denies pain medication. Will request tylenol in the evening. Pt left floor for radiation tx. Family visited and brought food, pt tolerated well. Medications administered per AUG. SERAFIN PICC in place. Purple port flushing with good blood return. Red port unable to flush. Milner in place draining yellow urine wtih sediment. Rt biopsy incision covered with bandaid, CDI. Rt pleurix catheter capped, covered with gauze and tegaderm. Minimal dried drainage present. pt on 2L NC. Denies dizziness, chest pain, N/V. No incontinet episodes this shift. Pt voiced no other concerns today.
--- NOTE | 2019-02-03 02:04 | NUR ---
Patient denies having any furhter pain or discomfort since receiving PRN APAP. Voices no questions, needs, or concerns at this time. Call light is within reach.
[2019-02-03 03:44] VITALS: BP 161/56; PULSE 63; TEMP 98.6
--- NOTE | 2019-02-03 05:45 | NUR ---
Patient has been resting in bed with eyes closed most of the night. Continues on oxygen at 2 L/min via NC. Staff continues to reposition in bed. Voices no questions, needs, or concerns. Resting in bed with eyes closed. Call light is within reach.
[2019-02-03 07:09] VITALS: BP 151/67; PULSE 73; TEMP 97.9
[2019-02-03 07:26] LABS: CREATININE, serum 0.65 (0.52-1.25); POTASSIUM 3.7 mmol/L (3.4-5.0)
[2019-02-03 11:10] VITALS: BP 155/67; PULSE 79; TEMP 98.1
--- NOTE | 2019-02-03 11:55 | NUR ---
Pt assessment complete and charted. Pt resting in bed. Morning medications administered per MAR. Pt denies dizzines, N/V. Pt gets SOB if bed is too flat. ON 1-2 L NC. SERAFIN PICC in place. Purple port flushes w/ blood return, red port unable to flush. Pt has rt side pleurix catheter clamped, minimal dried drainage. Bandaid on rt middle back from biopsy. Milner in place draining yellow urine. Pt coccyx is reddened, two small open sores. Barrier cream applied and dressing changed, new mepalex. Pt repositioned and pillows placed under sides. Pt states she feels more comfortable now. Voices no other concerns at this time. Call light within reach.
[2019-02-03 15:24] VITALS: BP 162/61; PULSE 72; TEMP 98.5
--- NOTE | 2019-02-03 17:29 | NUR ---
Pt repositioned in bed with pillows replaced under left and right side. Pt stated she was comfortable. SERAFIN PICC dressing changed. Both ports flushed with blood return.
--- NOTE | 2019-02-03 19:03 | NUR ---
Report received from Kate BERNAL. Pt resting. No needs noted.
[2019-02-03 19:44] VITALS: BP 138/48; PULSE 75; TEMP 98.7
--- NOTE | 2019-02-03 20:24 | NUR ---
Pt sleeping. No distress noted. Easily arousable. Pt denies pain. Respirations even and unlabored. R lung de la cruz diminished. R side pleurx drain clamped. Covered with drain sponge and tegaderm. O2@2L via NC. Abdomen rounded, soft. BS hyperactive. Indwelling catheter to dependent drainage- output is clear, yellow. Mepilex to coccyx. Pt denies needs. Will continue to monitor.
[2019-02-03 23:31] VITALS: BP 138/52; PULSE 66; TEMP 98.7
[2019-02-04 03:26] VITALS: BP 143/57; PULSE 67; TEMP 98.8
--- NOTE | 2019-02-04 06:30 | NUR ---
Pt resting this AM. She has slept throughout the night without complaints. VSS. No distress.
[2019-02-04 07:33] VITALS: BP 157/58; PULSE 72; TEMP 98.4
--- NOTE | 2019-02-04 08:00 | NUR ---
PT REFUSING BREATHING TXS. STATES SHE DOESNT NEED THEM
--- NOTE | 2019-02-04 09:29 | NUR ---
Pt assessment complete and charted. Pt sitting in bed after breakfast and working with therapy. Denies SOB, dizziness, N/V. C/O general "discomfort", denies pain medication at this time. SERAFIN PICC, both ports flushing well with blood return. Rt side pleurix catheter in place, capped, w/ drain sponge and tegaderm in place, minimal dried drainage. Rt sd back biopsy w/ bandaid, CDI. Milner in place draining clear, yellow urine. Pt voices no other concerns at this time. Morning medications administered per AUG. Call light within reach.
[2019-02-04 10:46] VITALS: BP 133/50; PULSE 71; TEMP 98.3
[2019-02-04 15:41] VITALS: BP 144/61; PULSE 77; TEMP 98
--- NOTE | 2019-02-04 18:32 | NUR ---
Pt has had uneventful day. Up with therapy ambulating halls using walker. Pt repositioned throughout day. Pt c/o general discomfort. Voices no other concerns.
[2019-02-04 19:54] VITALS: BP 140/50; PULSE 75; TEMP 98.2
--- NOTE | 2019-02-04 20:45 | NUR ---
Shift assessment complete. Pt resting in bed, awake, a&o, cooperative c cares. Pt reports generalized "uncomfortable"; provided c PRN Tylenol. Pt denies other c/o. PICC noted to R upper arm, patent c good blood return. Pleurex drain clamped s complication. Milner to DD. O2 per NC. Pt denies further needs. Call light in reach. Will continue to monitor.
[2019-02-04 23:20] VITALS: BP 119/53; PULSE 68; TEMP 97.9
[2019-02-05 03:14] VITALS: BP 152/58; PULSE 70; TEMP 97.8
[2019-02-05 05:58] LABS: BASO # 0.1 (0.0-0.2); BASO % 0.8 % (0.0-2.0); EOS # 0.2 (0.0-0.7); EOS % 1.6 % (0-4.0); GRAN # 8.4 (1.4-6.5); GRAN % 87.2 % (42.2-75.2); LYMPH # 0.4 (1.2-3.4); LYMPH % 4.4 % (20.0-51.0); MEAN CELL VOLUME 95 fl (80.0-100.0); MEAN CORPUSCULAR HGB CONC 30 g/dl (33.0-37.0); MEAN PLATELET VOLUME 9.8 fl (7.4-10.4); MONO # 0.5 (0.1-0.6); MONO % 5.6 % (1.7-9.3); PLATELET COUNT 321 K/mm3 (130-400); RED BLOOD COUNT 2.66 M/mm3 (4.10-5.30); REDCELL DISTRIBUTION WIDTH-CV 13.3 % (11.5-14.5)
[2019-02-05 06:03] LABS: HEMATOCRIT 25.2 % (37.0-47.0); HEMOGLOBIN 7.6 g/dl (12.5-16.0); MEAN CORPUSCULAR HEMOGLOBIN 29 pg (27.0-31.0)
[2019-02-05 06:09] LABS: CALCIUM 8.8 mg/dL (8.4-10.2); CREATININE, serum 0.59 (0.52-1.25); POTASSIUM 4.1 mmol/L (3.4-5.0)
[2019-02-05 07:44] VITALS: BP 152/54; PULSE 73; TEMP 97.8
--- NOTE | 2019-02-05 08:30 | NUR ---
Assessment complete. Pt sitting up in bed, A&O x 3. Breath sounds diminished in right lung. Pt reports generalized pain 5 out of 10 on pain scale. PICC line to right upper arm without s/s of complications. O2 at 1 L/min via NC. POC reviewed with pt. No further needs reported. Call light in reach.
--- NOTE | 2019-02-05 14:10 | NUR ---
Pt reports generalized pain 7 out of 10 that isn't decreasing today, states "I just can't take it anymore, can I have something stronger than Tylenol." Provider notified, order received.
--- NOTE | 2019-02-05 15:00 | NUR ---
Pt to [facility] for radiation therapy via [facility].
[2019-02-05 16:28] VITALS: BP 135/52; PULSE 69; TEMP 97.8
--- NOTE | 2019-02-05 16:40 | NUR ---
Pt back to room following radiation therapy via [facility], reports the pain medication is helping a little. No further needs reported. Call light in reach.
[2019-02-05 20:16] VITALS: BP 137/54; PULSE 72; TEMP 97.6
--- NOTE | 2019-02-05 20:20 | NUR ---
Shift assessment complete. Pt resting in bed, awake, a&o, cooperative c cares. 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 Pt denies other c/o. PICC noted to r upper arm, patent c good blood return. Milner to DD. O2 per NC. Pt denies needs. Call light in reach, will monitor.
[2019-02-06 00:58] VITALS: BP 112/53; PULSE 67; TEMP 97.5
[2019-02-06 04:34] VITALS: BP 116/49; PULSE 67; TEMP 97.5
[2019-02-06 06:08] LABS: BASO # 0.1 (0.0-0.2); BASO % 0.6 % (0.0-2.0); EOS # 0.2 (0.0-0.7); EOS % 2.1 % (0-4.0); GRAN # 8.6 (1.4-6.5); GRAN % 87.2 % (42.2-75.2); LYMPH # 0.4 (1.2-3.4); MEAN CELL VOLUME 96 fl (80.0-100.0); MEAN CORPUSCULAR HGB CONC 30 g/dl (33.0-37.0); MEAN PLATELET VOLUME 9.8 fl (7.4-10.4); MONO # 0.6 (0.1-0.6); MONO % 5.5 % (1.7-9.3); PLATELET COUNT 311 K/mm3 (130-400); RED BLOOD COUNT 2.52 M/mm3 (4.10-5.30); REDCELL DISTRIBUTION WIDTH-CV 13.6 % (11.5-14.5)
[2019-02-06 06:09] LABS: HEMATOCRIT 24.2 % (37.0-47.0); HEMOGLOBIN 7.3 g/dl (12.5-16.0); MEAN CORPUSCULAR HEMOGLOBIN 29 pg (27.0-31.0)
[2019-02-06 06:58] VITALS: BP 122/51; PULSE 71; TEMP 98.2
--- NOTE | 2019-02-06 10:30 | NUR ---
RECIEVED VERBAL ORDER FROM DR. FREDERICK TO PRIME ROACH WITH 400CC THEN PULL ROACH, THEN SEE HOW PT DOES TODAY. THIS NURSE DISCUSSED THIS WITH PT, PT WANTED WAIT UNTIL SHE RETURNS FOR RADATION THIS AFTERNOON.
--- NOTE | 2019-02-06 14:30 | NUR ---
THIS NURSE PRIMED ROACH WITH 400CC. PT DID FEEL LIKE HER BLADDER WAS UNCOMFORTABLY FULL. REMOVED 10CC FROM ROACH BALLOON, THEN REMOVED CATHETER TUBING. STAT LOCK WAS REMOVED FROM PT LEG. PT REQUESTED TO SIT ON COMMODE TO URINATE. STATED SHE FEELS THE SENSATION TO VOID THEN IT GOES AWAY AND BACK AND FORTH. PT WANTED TO SIT AND ATTEMPT TO VOID FOR A LITTLE WHILE.
--- NOTE | 2019-02-06 15:27 | NUR ---
TARIK met with the patient to check-in. The patient reports that right now she feels miserable. She states she is starting to feel worse, as the radiation continues. TARIK provided support. She states she is eager to get to [facility] to start rehab. The patient reports that her daughter (Radha) and friend (Elsy) were able to visit on Tuesday and that they brought her [employer], [employer], and some [employer] and she states that it was great. TARIK faxed updates to [facility]. SW to continue to follow.
[2019-02-06 15:37] VITALS: BP 121/44; PULSE 70; TEMP 98
--- NOTE | 2019-02-06 17:29 | NUR ---
THIS NURSE DRAINED PLEURX. PT HAD 1000CC OF DARK JAN COLORED LIQUID FROM PLEURX. PT TOLERATED WELL, DID VOICE SOME DISCOMFORT TOWARDS THE END OF THE PROCEDURE, STATED THAT SHE COULD TELL THAT SHE WAS ALMOST OUT OF FLUID TO BE DRAINED OFF.
[2019-02-06 19:47] VITALS: BP 114/48; PULSE 69; TEMP 97.6
--- NOTE | 2019-02-06 19:50 | NUR ---
Shift assessment complete. Pt resting in bed, awake, a&o, cooperative c cares. Pt reports continued generalized pain, will give PRN pain med c HS meds. Pt denies any other c/o. O2 per NC. PICC noted to R arm, patent c good blood return. O2 per NC. Pt denies needs. Call light in reach, bed alarm on. Will continue to monitor.
[2019-02-07 04:05] VITALS: BP 114/49; PULSE 76; TEMP 97.6
[2019-02-07 06:17] LABS: BASO # 0.1 (0.0-0.2); BASO % 0.8 % (0.0-2.0); EOS # 0.1 (0.0-0.7); GRAN # 6.1 (1.4-6.5); GRAN % 85.4 % (42.2-75.2); LYMPH # 0.3 (1.2-3.4); LYMPH % 3.9 % (20.0-51.0); MEAN CELL VOLUME 95 fl (80.0-100.0); MEAN CORPUSCULAR HGB CONC 31 g/dl (33.0-37.0); MEAN PLATELET VOLUME 10.2 fl (7.4-10.4); MONO # 0.5 (0.1-0.6); MONO % 7.2 % (1.7-9.3); PLATELET COUNT 283 K/mm3 (130-400); RED BLOOD COUNT 2.47 M/mm3 (4.10-5.30); REDCELL DISTRIBUTION WIDTH-CV 13.5 % (11.5-14.5)
[2019-02-07 06:18] LABS: HEMATOCRIT 23.5 % (37.0-47.0); HEMOGLOBIN 7.2 g/dl (12.5-16.0); MEAN CORPUSCULAR HEMOGLOBIN 29 pg (27.0-31.0)
[2019-02-07 08:12] VITALS: BP 131/53; PULSE 69; TEMP 98.5
--- NOTE | 2019-02-07 10:45 | NUR ---
PICC intact right upper arm. With sterile technique right upper arm PICC dressing change done with insertion site cleansed with ChloraPrep 1, chlorhexidine impregnated disc applied, skin prep, StatLock, and Tegaderm applied. No signs or symptoms of IV complications noted. No concerns voiced.
[2019-02-07 11:34] VITALS: BP 125/61; PULSE 71; TEMP 98.2
--- NOTE | 2019-02-07 11:49 | NUR ---
Assessment completed, alert/oriented, vital signs stable, denies pain or discomfort, scheduled for radiation around 1230 and will transfer by EMS, patient is having issues with urine retention and is unable to void today/ order from to replace conley cath at this time, she has a stgII pressure ulcer to her coccyx/ covered with Allevyn dressing, lungs CTA/ diminished on the right side/ pleurex drain cath in place and clamped, she requiring 2L. o2 to keep sats >90%, denies other needs at [facility], will continue to monitor
[2019-02-07 15:43] VITALS: BP 116/48; PULSE 68; TEMP 98.1
[2019-02-07 19:30] VITALS: BP 112/44; PULSE 66; TEMP 97.4
--- NOTE | 2019-02-07 20:20 | NUR ---
PT RESTING IN BED A+OX4. REPORTS NO NEEDS AT THIS TIME. CALL LIGHT IN REACH
--- NOTE | 2019-02-07 22:00 | NUR ---
PT RESTING IN BED A+OX4. REPORTS MINIMAL PAIN. TURNED PT WITH PILLOW ON RIGHT SIDE. BUL CLEAR. LLL CLEAR. RLL DIMINISED. PT ON O2 VIA NC. VSS. NO SOA. ROACH DRAINING FREELY, NO KINKS, SECURED TO LEFT LEG. CLEAR YELLOW URINE NOTED. DRAIN DRESSING DCI. TELE ON. BOWEL SOUNDS HEARD THROUGHOUT ABD. ABD SOFT. NO NEEDS A TTHIS TIME. CALL LIGHT IN REACH
[2019-02-07 23:22] VITALS: BP 110/43; PULSE 64; TEMP 98
[2019-02-08] VITALS (10 sets, daily range): BP systolic 11–130; BP diastolic 34–92; PULSE 62–69; TEMP 97.6–98.4
--- NOTE | 2019-02-08 03:06 | NUR ---
TURNING THROUGHOUT NIGHT. SACREAL REGION STAGE II ULCER DRESSING DCI. PT SLEEPING AT THIS TIME. ROACH DRAINING FREELY, NO KINKS. SECURED TO LEG
--- NOTE | 2019-02-08 05:19 | NUR ---
PT HAD AN UNEVNETFUL NIGHT. REPORTED MINIMAL PAIN AND DENIED NEEDS FOR PAIN MEDS. NO SOA. PT DECREASED TO 1L VIA NC SAT HIGH 90s. TURNED PT THROUGHOUT NIGHT- REPORTS "IT MAKES MY BOTTOM FEEL BETTER." SACREAL REGION DRESSING DCI. REPORTS NO NEEDS AT THIS TIME. CALL LIGHT IN REACH
[2019-02-08 06:04] LABS: BASO % 0.7 % (0.0-2.0); EOS # 0.1 (0.0-0.7); EOS % 1.7 % (0-4.0); GRAN # 5.1 (1.4-6.5); LYMPH # 0.3 (1.2-3.4); LYMPH % 4.5 % (20.0-51.0); MEAN CELL VOLUME 94 fl (80.0-100.0); MEAN CORPUSCULAR HGB CONC 30 g/dl (33.0-37.0); MEAN PLATELET VOLUME 10.3 fl (7.4-10.4); MONO # 0.5 (0.1-0.6); MONO % 8.4 % (1.7-9.3); PLATELET COUNT 268 K/mm3 (130-400); RED BLOOD COUNT 2.33 M/mm3 (4.10-5.30); REDCELL DISTRIBUTION WIDTH-CV 13.4 % (11.5-14.5)
[2019-02-08 06:09] LABS: HEMATOCRIT 21.9 % (37.0-47.0); MEAN CORPUSCULAR HEMOGLOBIN 28 pg (27.0-31.0)
[2019-02-08 06:10] LABS: HEMOGLOBIN 6.6 g/dl (12.5-16.0)
[2019-02-08 06:13] LABS: CALCIUM 8.6 mg/dL (8.4-10.2); CREATININE, serum 0.68 (0.52-1.25); POTASSIUM 3.8 mmol/L (3.4-5.0)
--- NOTE | 2019-02-08 07:10 | NUR ---
report given to harpreet damico
--- NOTE | 2019-02-08 12:04 | NUR ---
Pt assessment completed and charted. Pt resting in bed, A&O. VSS. C/O rt sided pain/tenderness in abdomen. Rt pleurix drain in place and clamped, covered with drain sponge and tegaderm. Milner catheter in place to manage urine retention, draining clear yellow urine, no kinks in tubing. Pt on 1L NC satting at 100%. Pt noted to have left avalos skin tear, per pt "from SCDs", bandaid placed. Bilateral feet edema noted, >rt side. Bruising noted to left elbow. Pt administered morning medications per MAR and PRN tramadol. Pt to have radiation at 1230 and then will receive unit of blood. Pillows placed under both sides of pt. No other concerns voiced at this time. Call light within reach.
--- NOTE | 2019-02-08 15:08 | NUR ---
Pt having pain and feeling tired, declined radiation this afternoon. Hospitalist aware. Will have nursing staff talk with Dr. Miguel tomorrow in regards to completing radiation and pts options moving forward. Pt rating pain at 6-12/27. Pt c/o pain in right side of abdomen. Pt administered pain medication per AUG.
--- NOTE | 2019-02-08 17:06 | NUR ---
Pt blood transfusion started at 60ml/hr. VS obtained prior to initiation, VSS. Patient laying in bed sleepy. Consent signed. This nurse remaining at patient bedside.
--- NOTE | 2019-02-08 17:43 | NUR ---
this nurse at patient bedside, blood transfusin at 60 ml/hr with no complications. VSS at this time.
--- NOTE | 2019-02-08 18:21 | NUR ---
Pt receiving blood transfusion. Rate increased to 150 m/hr. Pt tolerating, no complications. VSS.
--- NOTE | 2019-02-08 19:24 | NUR ---
Pt tolerating blood transfusion, VSS. Blood transfusing at 150 ml/hr with no complications. Pt coccyx dressing changed, barrier cream applied. Coccyx is reddened and stage 1 ulcer, opened. Pt voices no other concerns. Morphine PRN per MAR administered and pt states pain is better. Report given to Hallie BERNAL
--- NOTE | 2019-02-08 20:54 | NUR ---
BLOOD COMPLETED AT 1950- NO S/S OF REACTION. DR GREEN NOTIFIED ABOUT BP [id number]- NO NEW ORDERS GIVEN PT RESING IN BED A+OX4. REPORTS MINIMAL PAIN WITH NO NEED FOR PAIN INTERVNTIONS. 1+ EDEMA IN BILAT FEET. PEDAL AND RADIAL PULSES PALPATED. PICC FLUSHES WELL, BLOOD RETURN NOTED X2. PT ON 0.5L O2 VIA NC- SAT 98%- WILL TRY AND WEAN OFF TONIGHT. REFUSED SCD AN LOVENOX AT THIS TIME. LLL CLEAR. RLL DIMINISHED. CHALO CLEAR. HEART RRR. TELE ON. BOWEL SOUNDS HEARD THROUGHOUT. ABD SOFT. DRAIN DCI. NO NEEDS A TTHIS TIME. CALL LIGHT IN REACH
[2019-02-08 21:31] LABS: HEMATOCRIT 26.5 % (37.0-47.0); HEMOGLOBIN 8.4 g/dl (12.5-16.0)
[2019-02-09 00:03] VITALS: BP 116/52; PULSE 64; TEMP 98.9
--- NOTE | 2019-02-09 02:57 | NUR ---
PT REPORTS SOA- SAT 97%. INCREASED FROM 0.5 TO 1L VIA NC. NO NEEDS AT THIS TIME. CALL LIGHT IN REACH
[2019-02-09 03:18] VITALS: BP 124/44; PULSE 66; TEMP 98.4
--- NOTE | 2019-02-09 05:31 | NUR ---
PT HAD AN UNEVENTFUL NIGHT. A+OX4. SLEPT THROUGHOUT NIGHT. REPORTED MINIMAL PAIN AND REFUSED THE NEED FOR ANY PAIN MEDS. PT ROACH DRAINING FREELY, NO KINKS, SECURED TO LEG. PT ON 1L VIA NC AT 99%. PT REQUESTED O2 BE INCREASED FROM 0.5 TO 1L D/T SOA- DURING ASSESSMENT AND VITALS O2 NEVER DROPPED <96% ON THE 0.5 BUT INCREASED FOR COMFORT. TURNING PT THROUGHOUT NIGHT. SACREAL REGION IS RED AND NOT BLANCHABLE. STAGE II. DRESSING CHANGED 02/08/191999. SKIN TEAR ON LEFT CARLSON. REFUSED SCD THROUGHOUT NIGHT. REFUSED LOVENOX INJECTION. HYPOTENSION NOTED- DR BAY NOTIFIED AND REPORTED NO NEW ORDERS. PICC FLUSHES WELL, BLOOD RETURN NOTED. NO NEEDS AT THIS TIME CALL LIGHT IN REACH
[2019-02-09 06:20] LABS: BASO # 0.1 (0.0-0.2); BASO % 0.9 % (0.0-2.0); EOS # 0.1 (0.0-0.7); EOS % 1.3 % (0-4.0); GRAN # 5.8 (1.4-6.5); GRAN % 84.1 % (42.2-75.2); LYMPH # 0.2 (1.2-3.4); LYMPH % 3.5 % (20.0-51.0); MEAN CELL VOLUME 90 fl (80.0-100.0); MEAN CORPUSCULAR HGB CONC 32 g/dl (33.0-37.0); MEAN PLATELET VOLUME 10.1 fl (7.4-10.4); MONO # 0.7 (0.1-0.6); MONO % 9.8 % (1.7-9.3); PLATELET COUNT 271 K/mm3 (130-400); REDCELL DISTRIBUTION WIDTH-CV 14.6 % (11.5-14.5)
[2019-02-09 06:38] LABS: CALCIUM 8.9 mg/dL (8.4-10.2); CREATININE, serum 0.66 (0.52-1.25); POTASSIUM 3.6 mmol/L (3.4-5.0)
[2019-02-09 06:44] LABS: HEMATOCRIT 27.9 % (37.0-47.0); HEMOGLOBIN 8.8 g/dl (12.5-16.0); MEAN CORPUSCULAR HEMOGLOBIN 28 pg (27.0-31.0)
--- NOTE | 2019-02-09 07:07 | NUR ---
report given keiry rn
[2019-02-09 08:09] VITALS: BP 125/43; PULSE 74; TEMP 98.2
[2019-02-09 11:07] LABS: MAGNESIUM 1.8 mg/dL (1.6-2.3); PHOSPHOROUS 3.2 mg/dL (2.5-4.5)
[2019-02-09 11:39] VITALS: BP 119/43; PULSE 73; TEMP 98.5
[2019-02-09 11:46] LABS: ALBUMIN 2.9 gm/dL (3.5-5.0); BILIRUBIN,TOTAL 0.4 mg/dL (0.0-1.0); CREATININE, serum 0.65 (0.52-1.25); POTASSIUM 3.7 mmol/L (3.4-5.0); TOTAL PROTEIN 5.7 gm/dL (6.4-8.2)
[2019-02-09 11:53] LABS: PRE ALBUMIN 11.7 mg/dL (17.6-36.0)
--- NOTE | 2019-02-09 12:58 | NUR ---
TARIK met with the patient to check in. The patient reports that she is doing okay. Feeling weaker. She states that her daughter and a friend may be able to come visit her this weekend. The patient was unable to receive radiation yesterday, due to being too weak and the patient is to start IV nutrition today. The patient's tentative last radiation treatment would be next Tuesday, 02/14. TARIK contacted and updated Oralia at [facility] and informed her of the patient's tentative discharge date. Oralia reports that they would still be able to accept the patient. TARIK faxed updates to [facility]. TARIK to continue to follow.
[2019-02-09 16:24] VITALS: BP 133/56; PULSE 70; TEMP 98.1
--- NOTE | 2019-02-09 18:24 | NUR ---
PT HAS NEEDED A COUPLE DOSES OF TRAMADOL THIS SHIFT FOR GENERALIZED PAIN/ BACK PAIN. CLININIX AND LIPOSYN STARTED, PT VOICED THAT SHE WAS GLAD SHE WAS GETTTING THE IV NUTRITION AND VOICED THAT SHE WAS HOPEFULL THAT IT WOULD HELP HER FEEL BETTER AND NOT BE SO WEAK AND WORN OUT. ACCU CHECKS AND ALL THE TPN PROTOCOL WAS STARTED THIS AFTERNOON WELL. BALJEET BERNAL VARIFIED THE CLININIX AND LIPOSYN UPON STARTING IT. THIS NURSE ASKED PT DURING SHIFT IF SHE FELT LIKE SHE NEEDED THE MIRALAX THAT THEY PUT ON ORDER FOR PRN, PT DENIED NEED. PT WENT TO RADIATION THIS MORNING, WAS ABLE TO EAT HALF OF HER LUNCH THEN WAS SICK TO HER STOMACH AFTER HALF WAY THROUGH IT AND COULDNT FINISH THE REST. FAMILY WAS INTO VISIT WITH PATIENT FOR A FEW HOUSE THIS AFTERNOON, PT TOOK A NAP AFTERWARDS. NO CONCERNS OR ISSUES VOICED.
[2019-02-09 19:08] VITALS: BP 129/53; PULSE 67; TEMP 97.7
--- NOTE | 2019-02-09 19:15 | NUR ---
Patient assessed at this time. Alert and oriented x 4, and able to make needs known. Denies having pain and discomfort. TPN running per orders to PICC to RUE. Dressing to PICC is CDI. Denies having pain and discomfort to area. Denies having SOB and dypsnea. On oxygen at 1 L/min via NC. Repirations even and unlabored. Occasional moist cough. Unable to produce sputum. Dressing to clampled pleurex drain to right chest is CDI. HRR. Cap refill < 3 sec. Non-tenting skin turgor. BSAx4. Abdomen soft and non-tender. No edema noted. Mepilex to coccyx is CDI. Skin tear to left avalos is METAL HANGER. Voices no questions, needs, or concerns at this time. Refused Lovenox injection. Resting in bed with call light within reach.
[2019-02-10] VITALS (7 sets, daily range): BP systolic 103–146; BP diastolic 47–66; PULSE 66–72; TEMP 97.5–98.4
--- NOTE | 2019-02-10 00:36 | NUR ---
Staff has been repositioning during rounds. New mepilex dressing placed to coccyx at this time. Area cleansed and pat dried. Redness to area, non-blanchable. Two small open areas, superficial. Mepilex applied. Staff continues to encourage to stay off of bottom, but only allows slight transfer of weight from side to side.
--- NOTE | 2019-02-10 05:46 | NUR ---
Staff continues to provide repositioning during nightly rounds. TPN running per orders. Patient tolerating well. Labs drawn per orders this morning. BS 160. Patient denies having pain and discomfort. Voices no questions, needs, or concerns. Continues on oxygen at 1 L/min via NC. HOB elevated. Indwelling conley catheter patent, draining clear yellow/jessica urine via dependent drainage. Resting in bed with call light within reach.
[2019-02-10 06:19] LABS: BASO % 0.4 % (0.0-2.0); EOS # 0.1 (0.0-0.7); EOS % 1.8 % (0-4.0); GRAN # 5.8 (1.4-6.5); GRAN % 84.7 % (42.2-75.2); LYMPH # 0.2 (1.2-3.4); LYMPH % 2.8 % (20.0-51.0); MEAN CELL VOLUME 92 fl (80.0-100.0); MEAN CORPUSCULAR HGB CONC 32 g/dl (33.0-37.0); MEAN PLATELET VOLUME 10.1 fl (7.4-10.4); MONO # 0.7 (0.1-0.6); MONO % 9.9 % (1.7-9.3); PLATELET COUNT 255 K/mm3 (130-400); RED BLOOD COUNT 2.93 M/mm3 (4.10-5.30)
[2019-02-10 06:22] LABS: HEMATOCRIT 26.8 % (37.0-47.0); HEMOGLOBIN 8.5 g/dl (12.5-16.0); MEAN CORPUSCULAR HEMOGLOBIN 29 pg (27.0-31.0)
[2019-02-10 06:32] LABS: ALBUMIN 2.8 gm/dL (3.5-5.0); BILIRUBIN,TOTAL 0.2 mg/dL (0.0-1.0); CALCIUM 8.7 mg/dL (8.4-10.2); CREATININE, serum 0.56 (0.52-1.25); MAGNESIUM 1.7 mg/dL (1.6-2.3); PHOSPHOROUS 2.9 mg/dL (2.5-4.5); POTASSIUM 3.6 mmol/L (3.4-5.0); TOTAL PROTEIN 5.6 gm/dL (6.4-8.2)
--- NOTE | 2019-02-10 19:00 | NUR ---
PT HAVING AN INCREASE IN PAIN THIS DAY. PT REQUESTED A TRAMADOL THIS AM. ABOUT AN HOUR LATER PT MOANING IN PAIN AND REQUESTED SOME MORPHINE. STATED SHE WAS SUPER UNCOMFORTABLE AND HAD A HARD TIME GETTING HER AIR. THIS NURSE PROVIDED PT WITH SOME MORPHINE, PAIN WAS ABLE TO GET UNDER CONTROL ABOUT 20-30 MINS LATER AND PT WAS ABLE TO TAKE A NAP. THIS NURSE AWOKE PT AT 1500 FOR MEDS AND VITALS, PT STATED SHE WAS FEELING ALOT BETTER BUT STILL EXIBITING SOME ABD DISCOMFORT. THIS NURSE NOTED DISTENTION IN ABD. PT DID HAVE A SMALL AMOUT OF EMISIS NOTED. THIS NURSE AND RAIL DETECTOR CAR OPERATOR ASSISTED PT GET COMFORTABLE AND PLACED PILLOWS UNDER PT. THIS NURSE CALLED DR. NORTH AND ASKED ABOUT SEEING IF WE COULD GO AHEAD AND DRAIN PT PLUELEX AND SEE IF SHE FELT BETTER, AND IF I COULD ENTER A VERBAL ORDER TO DRAIN PLUELEX PRN DUE TO IT HAD BEEN IN THE NOTED BUT NOT ENTERED AN ORDER. PROVIDER STATED THAT WOULD BE FINE. THIS NURSE DIT DRAIN 1000ML FROM PLUELEX DRAIN TUBING. PT TOLERATED WELL, STATED SHE HAD SOME DISCOMFORT AT THE END OF PROCEDURE NORMALLY, AND WE WHERE HOPEFUL THAT SHE WOULD FEEL BETTER AFTERWARD. THIS NURSE CHECKED ABOUT ABOUT 15 MINS AFTER AND PT STATED SHE WAS ALREADY FEELING BETTER. PROVIDER WAS ABLE TO GO IN TO SEE PT TO SEE IF PT WAS FEELING BETTER AFTER, AND ENSURED PROVIDER THAT SHE WAS FEELING ALOT BETTER. PT WAS ABLE TO GET SOME MORE REST AFTERWARDS. CLININEX INFUSING DURING THE DAY AND THIS AFTERNOON THIS NURSE CHANGED PICC LINE CAPS THEN STARTED NEW CLININIX AND LIPOSYN WITH NEW TUBING, UPON STARTING HAD ANICETO RN VARIFY FILTER TUBING AND RATE PER ORDERS. PT HADNT EATEN THIS DAY DUE TO NOT FEELING WELL HAD A LITTLE BIT TO DRINK OF FREE WATER APPROX 100CC. UPON SHIFT CHANGE RECHECKED IN WITH ABOUT FEELING BETTER AND SHE STATED THAT SHE WAS.
--- NOTE | 2019-02-10 20:05 | NUR ---
Patient assessed at this time. Alert and oriented x 4. Able to make needs known. Complained of level 6, all over pain. Given PRN Tramadol as requested for pain. PICC to RUE. TPN running per orders to red port. Purple port flushed. Area is without redness, warmth, swelling, and pain. On oxygen at 1 L/min via NC. Does report orthopnea. Denies SOB and dypsnea with little exertion. Reported that her breathing has improved since pleurex drain was drained earlier today. LS CTA in left lung de la cruz and right upper lobe, and diminished in right lower lobe. Respirations are even and unlabored. Dressing to clamped pleurex drain is CDI. HRR. Cap refill < 3 sec. Non-tent skin turgor. Encouraged fluid intake, but only takes small sips. Did report she had emesis earlier. Denies nausea at this time. BSAx4. Abdomen soft and non-tender. 1+ edema BLE. Skin tear to left avalos BEAU. Mepilex dressing to coccyx is CDI. SCDs are on. Indwelling conley catheter is patent, and draining clear yellow urine via dependent drainage. Voices no questions, needs, or concerns at this time. Resting in bed with call light within reach.
[2019-02-11 04:08] VITALS: BP 110/44; PULSE 67; TEMP 97.6
--- NOTE | 2019-02-11 05:45 | NUR ---
Patient has not had any further complaints of pain or discomfort since receiving PRN Tramadol at [facility] last night. Voices no questions, needs, or concerns. Woke up this morning smiling, and in a good mood. Denies having pain and discomfort. Denies having SOB and dyspnea, except when head of bed is lowered. Resting in bed with call light within reach.
[2019-02-11 06:16] LABS: BASO % 0.5 % (0.0-2.0); EOS # 0.2 (0.0-0.7); EOS % 2.2 % (0-4.0); GRAN # 6.1 (1.4-6.5); GRAN % 81.9 % (42.2-75.2); LYMPH # 0.2 (1.2-3.4); LYMPH % 3.3 % (20.0-51.0); MEAN CELL VOLUME 93 fl (80.0-100.0); MEAN CORPUSCULAR HGB CONC 31 g/dl (33.0-37.0); MEAN PLATELET VOLUME 10.2 fl (7.4-10.4); MONO # 0.8 (0.1-0.6); MONO % 11.4 % (1.7-9.3); PLATELET COUNT 255 K/mm3 (130-400); RED BLOOD COUNT 3.02 M/mm3 (4.10-5.30); REDCELL DISTRIBUTION WIDTH-CV 13.6 % (11.5-14.5)
[2019-02-11 06:21] LABS: HEMATOCRIT 28.2 % (37.0-47.0); HEMOGLOBIN 8.7 g/dl (12.5-16.0); MEAN CORPUSCULAR HEMOGLOBIN 29 pg (27.0-31.0)
[2019-02-11 06:33] LABS: CALCIUM 8.7 mg/dL (8.4-10.2); CREATININE, serum 0.69 (0.52-1.25); MAGNESIUM 1.6 mg/dL (1.6-2.3); PHOSPHOROUS 3.5 mg/dL (2.5-4.5); POTASSIUM 3.3 mmol/L (3.4-5.0)
[2019-02-11 07:32] VITALS: BP 117/65; PULSE 71; TEMP 98.1
[2019-02-11 11:21] VITALS: BP 127/55; PULSE 70; TEMP 97.7
[2019-02-11 15:33] VITALS: BP 121/50; PULSE 71; TEMP 98
[2019-02-11 19:31] VITALS: BP 123/48; PULSE 69; TEMP 97.7
--- NOTE | 2019-02-11 19:49 | NUR ---
PT DID HAVE SOME NOTED NAUSEA AND EMISIS THIS AM, BY THE TIME THIS NURSE GOT ORDER FOR ZOFRAN PT WAS SLEEPING, PT DID WAKE UP FROM NAP THIS AFTERNOON AND HAD MORE NAUSEA, DID GET HER SOME ZOFRAN AT THAT TIME, PT DID GET RELIEF. PT NEEDED A COUPLE DOSES TRAMADOL FOR GENERALIZED PAIN. THIS NURES REPLACED POTASSIUM VIA IV WITHOUT ISSUES. PT REFUSING TO EAT OR DRINK MUCH.
--- NOTE | 2019-02-11 20:15 | NUR ---
Shift assessment complete. Pt resting in bed, sleepy but easy to wake, a&o, cooperative c cares. Pt c/o continued generalized pain "from radiation" that has worsed over the last few days, reports tramadol doesn't help much et IV MS made her sick, provider on-call notified et order for [place] recieved et admin. Pt denies other c/o, reports "just so tired". PICC noted to R upper arm, patent c good blood return; PPN infusing per orders. Milner to DD. R pleurex drain noted, clamped. O2 per NC. Pt denies further needs. Call light in reach. Will continue to monitor.
[2019-02-11 23:29] VITALS: BP 108/45; PULSE 69; TEMP 97.5
--- NOTE | 2019-02-12 04:47 | NUR ---
Pt resting in bed, condition unchanged. Pt continues to have increased pain, moderately well controlled c MADDIE Sinclair et pt reports she was able to sleep. No new needs. Call light in reach.
[2019-02-12 06:08] LABS: BASO # 0.1 (0.0-0.2); BASO % 0.8 % (0.0-2.0); EOS # 0.2 (0.0-0.7); EOS % 2.4 % (0-4.0); GRAN # 5.2 (1.4-6.5); GRAN % 79.5 % (42.2-75.2); LYMPH # 0.3 (1.2-3.4); LYMPH % 3.8 % (20.0-51.0); MEAN CELL VOLUME 94 fl (80.0-100.0); MEAN CORPUSCULAR HGB CONC 31 g/dl (33.0-37.0); MEAN PLATELET VOLUME 10.1 fl (7.4-10.4); MONO # 0.8 (0.1-0.6); MONO % 12.6 % (1.7-9.3); PLATELET COUNT 276 K/mm3 (130-400); RED BLOOD COUNT 2.94 M/mm3 (4.10-5.30); REDCELL DISTRIBUTION WIDTH-CV 13.6 % (11.5-14.5)
[2019-02-12 06:14] LABS: CALCIUM 8.7 mg/dL (8.4-10.2); CREATININE, serum 0.72 (0.52-1.25); MAGNESIUM 1.7 mg/dL (1.6-2.3); PHOSPHOROUS 3.7 mg/dL (2.5-4.5)
[2019-02-12 06:20] LABS: HEMATOCRIT 27.5 % (37.0-47.0); HEMOGLOBIN 8.4 g/dl (12.5-16.0); MEAN CORPUSCULAR HEMOGLOBIN 29 pg (27.0-31.0)
[2019-02-12 08:16] VITALS: BP 105/40; PULSE 68; TEMP 97
--- NOTE | 2019-02-12 08:37 | NUR ---
Pt assessment complete. Pt is sitting up in bed upon entry, she is drowsy but arouses to voice. Pt's breathing is even and unlabored on 1L O2 via NC. Pt denies SOB at this time. Pt has generalized pain but refuses pain medication at this time, stating she is nauseated. Pt also refuses PRN Zofran at this time. TPN infusing into RUE without complications. Milner DD, clear yellow urine. POC discussed with patient who verbalizes understanding. Plan to have radiation at 0900, verbalizes understanding. No needs at this time. Call light within reach.
--- NOTE | 2019-02-12 09:00 | NUR ---
Pt left for radiation at this time.
--- NOTE | 2019-02-12 10:20 | NUR ---
Pt back from radiation at this time. She denies pain or need for pain medications. TPN infusing.
--- NOTE | 2019-02-12 11:32 | NUR ---
[facility]. [facility] still able to accept patient and they will transport patient on 02/15 at 11am. TARIK faxed updates and provided her number for any further questions.
[2019-02-12 12:37] VITALS: BP 118/41; PULSE 71; TEMP 98.3
[2019-02-12 16:52] VITALS: BP 116/51; PULSE 67; TEMP 98
--- NOTE | 2019-02-12 18:52 | NUR ---
Pt slept most of the day. Intermittent pain, pt refusing to eat dinner ate small amount of lunch d/t nausea but refuses PRN Zofran. Pt repositioned to offload coccyx. Milner DD, clear yellow urine. TPN infusing without complications. No needs at this time. Call light within reach.
--- NOTE | 2019-02-12 19:30 | NUR ---
Patient assessed at this time. Alert and oriented x 4, and able to make needs known. Denies having pain and discomfort. Double lumen PICC to right upper arm. Patent. Site is without redness, warmth, swelling, and pain. Denies having SOB and dyspnea. Does have orthopnea. On oxygen at 2 L/min via NC. LS: left lung de la cruz and right upper lobe CTA, right lower lobe diminished. Clamped pleurex drain to right side. Dressing to area is CDI. Denies pain and discomfort to area. HRR. Capillary refill less than 3 seconds. Non-tenting skin turgor. BS hypoactive x 4. Patient had dulcolax suppository on previous shift. No results so far this shift. Patient reports she is passing gas. Indwelling conley catheter draining clear yellow urine via dependent drainge. No edema. Mepilex to coccyx is CDI. SCDs are on. Refused Lovenox injection. Encouraged to eat and drink nutritional supplements, but only takes sips. Denies having any questions, needs, or concerns at this time. Resting in bed with call light within reach.
[2019-02-12 19:33] VITALS: BP 112/50; PULSE 67; TEMP 98
[2019-02-12 23:42] VITALS: BP 103/42; PULSE 63; TEMP 97.7
--- NOTE | 2019-02-13 03:34 | NUR ---
Patient complained of level 6 pain all over around 0230. Given PRN [place] as requested. Repositioned in bed. Patient had small amount of mucousy BM according to HEAVY EQUIPMENT OPERATOR/PAVER. Patient resting in bed with eyes closed at this time. Call light is within reach.
[2019-02-13 04:19] VITALS: BP 126/62; PULSE 73; TEMP 98.7
--- NOTE | 2019-02-13 05:39 | NUR ---
No furhter complaints of pain or discomfort voiced at this time. Lab drawn through double lumen PICC to RUE. Difficulty getting blood return, but able to obtain lab. TPN continues to run per orders. Resting in bed with call light within reach.
[2019-02-13 06:55] LABS: CALCIUM 8.5 mg/dL (8.4-10.2); CREATININE, serum 0.75 (0.52-1.25); MAGNESIUM 1.7 mg/dL (1.6-2.3); POTASSIUM 3.7 mmol/L (3.4-5.0)
[2019-02-13 07:02] VITALS: BP 130/47; PULSE 72; TEMP 98.1
--- NOTE | 2019-02-13 08:58 | NUR ---
Pt left for radiation at this time.
--- NOTE | 2019-02-13 09:59 | NUR ---
Pt assessment complete. Pt is laying in bed with eyes closed. She arouses to voice, she is oriented x3. Her breathing is even and unlabored on RA, pt states she feels as if she is "filling up". Plan to drain R side today. TPN infusing into RUE. POtassium infusing per protocol. Annia DD. Air mattress placed to patient's bed for ulcer to Coccyx. Pt refusing to eat breakfast. Call light within reach.
--- NOTE | 2019-02-13 10:36 | NUR ---
Pt's pleurix drained, 650mls taken out. Pt tolerated without issues. New dressing placed to site. Denies needs at this time. Call light within reach.
[2019-02-13 10:47] VITALS: BP 135/46; PULSE 72; TEMP 97.8
--- NOTE | 2019-02-13 12:28 | NUR ---
Cecelia administered, ekta ordered for lunch. Pt denies needs, call light within reach.
--- NOTE | 2019-02-13 13:55 | NUR ---
SW attended clinical rounds. Patient had radiation this morning and reports she is tired and nauseous. Patient reports that her nausea "comes and goes." SMALL ARMS ARTILLERY REPAIRER and dietitian voiced concerns that patient is not eating. Patient report she does not have an appetite but she is willing to try any options given. Patient understands that eating will help with her strength and that she will not be able to have [facility] nutrition at the [facility]. SW spoke Krystle, leadite heater, from [facility] and faxed updates. Krystle reported that they are able to provide IV nutrition if needed. SW reported that the dietitian would like to see patient get nutrition orally instead of IV nurtirtion. Patient will have her last radiation treatment tomorrow and discharge to [facility] on morning.
--- NOTE | 2019-02-13 15:00 | NUR ---
Pt ate approximately 20% of shake from lunch. No emesis visualized. Will continue to monitor.
[2019-02-13 15:55] VITALS: BP 118/49; PULSE 70; TEMP 97.9
--- NOTE | 2019-02-13 18:34 | NUR ---
Pt rested with eyes closed most of the day. She denied pain. PRN Zofran administered prior to eating, pt did not eat much. Prior to arrival of meal small amount of dry heaving this afternoon, no emesis visualized. Annia DD. TPN infusing without complications. No needs at this time. Call light within reach.
--- NOTE | 2019-02-13 19:45 | NUR ---
Patient assessed at this time. Alert and oriented x 4, and able to make needs known. Denies having pain and discomfort at this time. Double lumen PICC to RUE. TPN running per orders. Site is without redness, warmth, swelling, and pain. Denies having SOB and dyspnea. Patient is on room air at this time. Denies wanting any oxygen on. LS CTA. Respirations even and unlabored. HRR. Capillary refill less than 3 seconds. Non-tenting skin turgor. BSAx4. Abdomen soft and non-tender. Continues to state that she feels constipated. Is passing gas. No edema noted. Mepilex to coccyx is CDI. Indwelling conley catheter patent, and draining clear yellow urine via dependent drainage. Voices no questions, needs, or concerns at this time. Resting in bed with call light within reach.
[2019-02-13 19:57] VITALS: BP 126/46; PULSE 72; TEMP 97.6
[2019-02-14] VITALS (7 sets, daily range): BP systolic 113–141; BP diastolic 35–61; PULSE 70–76; TEMP 97.7–98.6
--- NOTE | 2019-02-14 05:07 | NUR ---
Patient is currently at 92% on oxygen at 6 L/min via high flow NC. Denies having SOB and dyspnea. LS coarse crackles throughout. Encouraged to cough and deep breathe. Given PRN [place] 1 tab po for pain. Stated that medication was effective with pain management. Patient to get CTA of head and neck today per Dr. Gee. Continues to have hallucinations of bugs crawling on doors and cornejo. Remains on high risk fall precautions. Has been using bedside commode, accurate I&Os being obtained. Call light is within reach.
--- NOTE | 2019-02-14 05:18 | NUR ---
Patient has denied having pain and discomfort throughout the night. Staff continued to encourage food and fluids when awake, but only took small sips. Denies having any questions, needs, or concerns. Call light is within reach.
[2019-02-14 06:13] LABS: BASO % 0.7 % (0.0-2.0); EOS # 0.2 (0.0-0.7); EOS % 2.8 % (0-4.0); GRAN # 4.6 (1.4-6.5); GRAN % 81.1 % (42.2-75.2); LYMPH # 0.2 (1.2-3.4); MEAN CELL VOLUME 91 fl (80.0-100.0); MEAN CORPUSCULAR HGB CONC 32 g/dl (33.0-37.0); MEAN PLATELET VOLUME 9.7 fl (7.4-10.4); MONO # 0.7 (0.1-0.6); MONO % 11.5 % (1.7-9.3); PLATELET COUNT 292 K/mm3 (130-400); RED BLOOD COUNT 3.22 M/mm3 (4.10-5.30); REDCELL DISTRIBUTION WIDTH-CV 13.5 % (11.5-14.5)
[2019-02-14 06:14] LABS: HEMATOCRIT 29.2 % (37.0-47.0); HEMOGLOBIN 9.3 g/dl (12.5-16.0); MEAN CORPUSCULAR HEMOGLOBIN 29 pg (27.0-31.0)
[2019-02-14 06:22] LABS: MAGNESIUM 1.9 mg/dL (1.6-2.3); PHOSPHOROUS 3.1 mg/dL (2.5-4.5); POTASSIUM 4.1 mmol/L (3.4-5.0)
[2019-02-14 06:29] LABS: PRE ALBUMIN 14.5 mg/dL (17.6-36.0)
--- NOTE | 2019-02-14 08:30 | NUR ---
Assessment complete. Pt resting in bed, A&O x 3. Breath sounds diminished. BS active x 4. Pt denies pain at this time, reports "it comes and goes." IV TPN infusing per orders through right upper arm PICC line without s/s of complications. POC reviewed with pt. No further needs reported. Call light in reach.
--- NOTE | 2019-02-14 12:01 | NUR ---
Follow up; Patient thanked Internal Grinder Tender for looking in on her again and offering God's blessings.
[2019-02-14 14:52] LABS: CALCIUM 8.8 mg/dL (8.4-10.2); CREATININE, serum 0.69 (0.52-1.25); POTASSIUM 4.3 mmol/L (3.4-5.0)
--- NOTE | 2019-02-14 15:15 | NUR ---
PICC intact right upper arm with sterile dressing change done with insertion site cleansed with chloraprep x 1, chlorhexidine impregnated disk applied, skin prep, stat lock, and tegaderm applied. no signs or symptoms of IV complications noted. no concerns voiced. to continue to monitor.
--- NOTE | 2019-02-14 15:54 | NUR ---
TARIK, hospitalist, PA, nurse, and dietitian met with patient and daughter, Radha (via phone) to discuss goals of care. Patient reports she is not wanting to pursue any more cancer treamtment. Patient and daughter do not think going to post acute rehab would be benefitial to patient and would like to cancel the referral to [facility]. Patient and daughter both agree that hopsice is the best option for patient. Patient and daughter were given hospice options and they chose the [facility] [place]. TARIK faxed referral to Schuyler at [facility]. Schuyler reports that they will process the referral and plan for a tentative discharge time for 10am tomorrow 02/15. Schuyler reports she will be in contact with Radha.
--- NOTE | 2019-02-14 19:08 | NUR ---
Report with DOLORES De La Cruz. Pt resting in bed, denies needs. Call light in reach. Bed alarm on.
--- NOTE | 2019-02-14 19:30 | NUR ---
Patient assessed at this time. Alert and oriented, and able to make needs known. Complained of level 5 all over pain. Given PRN Roxinol per orders. Double lumen PICC to RUE flushed. Site is without redness, warmth, swelling, and pain. Denies having SOB and dyspnea. Does report orthopnea. On room air. LS CTA in upper lobes, diminished in lower lobes. HRR. Capillary refill > 3 seconds. Tenting skin turgor. BSAx4. Abdomen soft and non-tender. No edema. Dressing to clamped pleurex drain is CDI. Mepilex to coccyx is CDI. Voices no questions, needs, or concerns at this time. Staff continues to encourage oral intake and repositioning. Resting in bed with call light within reach.
[2019-02-15 04:31] VITALS: BP 145/75; PULSE 78; TEMP 98
--- NOTE | 2019-02-15 06:18 | NUR ---
Patient has been resting in bed with eyes closed. No furhter complaints of pain or discomfort. Repositioned in bed. Voices no questions, needs, or concerns. Resting in bed with call light within reach.
[2019-02-15] MEDS ORDERED: DULCOLAX S10 MG/SUPP RC (07:14)
[2019-02-15] MEDS ORDERED: ZOFRAN ODT4 MG PO (07:15)
[2019-02-15] MEDS ORDERED: MIRALAX238G PO (07:15)
[2019-02-15] MEDS ORDERED: COLACE 100100 MG/CAP PO (07:15)
[2019-02-15] MEDS ORDERED: ROXANOL 20MG20 MG/ML SL (07:17)
[2019-02-15] MEDS ORDERED: ATIVAN 1MG T1 MG/TAB PO (07:17)
--- NOTE | 2019-02-15 07:46 | NUR ---
Pt assessment complete. Pt is laying in bed upon entry, she is resting with eyes closed but arouses to voice. Pt is oriented x3. Her breathing is even and unlabored on RA. Pt reports pain all over, PRN pain medication administered. Air mattress on bed, Annia [place]AR[place]. Pt denies any other needs, call light within reach.
[2019-02-15 08:08] VITALS: BP 153/55; PULSE 77; TEMP 97.8
--- NOTE | 2019-02-15 09:30 | NUR ---
TARIK attended clinical rounds. Patient was accepted to the [facility]. Hospice has been in contact with patient's daughter, Radha, this morning about transfer at 10am. SW presented IM to patient, she signed and was provided a copy. TARIK faxed discharge orders and arranged [facility] for 10am.
--- NOTE | 2019-02-15 10:18 | NUR ---
Pt left via EMS at this time. PICC line dc'd from [facility]. Catheter in place.
--- NOTE | 2019-02-15 10:30 | NUR ---
Attempted to call report to Hospice house.
== END 2019-02-15 10:00 | disposition hospice, inpatient (51) | DRG 180 ==
LOC: MEDICAL 15:45 → ICU 16:41 → MEDICAL 16:41 → ICU 01-20 08:20 → MEDICAL 01-23 15:52
PROVIDERS: Family Medicine; Hospitalist; Internal Medicine; Internal Medicine Critical Care Medicine; Nurse Practitioner Family; Physician Assistant; Student in an Organized Health Care Education/Training Program; ADMIT Family Medicine
PROC: 0W993ZZ Drainage of Right Pleural Cavity, Percutaneous Approach (ICD-10-PCS; principal; 2019-01-20)
PROC: 02HV33Z Insertion of Infusion Device into Superior Vena Cava, Percutaneous Approach (ICD-10-PCS; 2019-01-22)
PROC: 0WH903Z Insertion of Infusion Device into Right Pleural Cavity, Open Approach (ICD-10-PCS; 2019-01-25)
PROC: 0BBL3ZX Excision of Left Lung, Percutaneous Approach, Diagnostic (ICD-10-PCS; 2019-01-26)
DX: C34.91 Malignant neoplasm of unspecified part of right bronchus or lung (principal); J98.59 Other diseases of mediastinum, not elsewhere classified; E43 Unspecified severe protein-calorie malnutrition; J17 Pneumonia in diseases classified elsewhere; J90 Pleural effusion, not elsewhere classified; E87.1 Hypo-osmolality and hyponatremia; J98.11 Atelectasis; I87.1 Compression of vein; J44.1 Chronic obstructive pulmonary disease with (acute) exacerbation; E87.3 Alkalosis; Z51.5 Encounter for palliative care; R33.9 Retention of urine, unspecified; R53.81 Other malaise; I07.1 Rheumatic tricuspid insufficiency; I48.91 Unspecified atrial fibrillation; I10 Essential (primary) hypertension; R09.02 Hypoxemia; D64.9 Anemia, unspecified; D47.3 Essential (hemorrhagic) thrombocythemia; I95.9 Hypotension, unspecified; K59.00 Constipation, unspecified; F17.210 Nicotine dependence, cigarettes, uncomplicated; Y84.6 Urinary catheterization as the cause of abnormal reaction of the patient, or of later complication, without mention of misadventure at the time of the procedure; Y92.239 Unspecified place in hospital as the place of occurrence of the external cause; Y73.8 Miscellaneous gastroenterology and urology devices associated with adverse incidents, not elsewhere classified; Y92.009 Unspecified place in unspecified non-institutional (private) residence as the place of occurrence of the external cause
CPT/HCPCS: 99222; 99222-AI; 99231-AI; 99232-AI; 99233-AI; 99238; A4216; C1729; C1751; J0282; J0610; J0690; J0696; J1650; J2250; J2270; J2370; J2405; J2543; J2704; J3010; J3370; J3475; J3480; J7030; J7050; J7060; J7131; J7512; P9016; Q9967